=== PATIENT | male | born 1950 | race Caucasian/White ===

== ENCOUNTER → 2022-04-27 13:37 | Outpatient (CLI) | payer MEDICARE, OTHER, SELFPAY ==
[2022-04-27 14:24] LABS: Add Manual Diff / Slide Review NO; Basophils Absolute Auto 100 /uL (0-100); Basophils Percent Auto 0.6 % (0-2); Eosinophils Absolute Auto 500 /uL (0-450); Eosinophils Percent Auto 3.4 % (2-4); Hematocrit 42.9 % (41-53); Hemoglobin 14.2 g/dL (13.5-17.5); Lymphocytes Absolute Auto 3000 /uL (1100-4500); Lymphocytes Percent Auto 21.2 % (25-40); Mean Corpuscular HGB Conc 33.2 % (30-36); Mean Corpuscular Hemoglobin 30.8 PG (26-34); Mean Corpuscular Volume 92.7 fL (80-100); Monocytes Absolute Auto 1300 /uL (0-900); Monocytes Percent Auto 8.8 % (3-14); Neutrophils Absolute Auto 9400 /uL (1500-7000); Platelet Count 308 X10^3/uL (150-400); Red Blood Cell Count 4.63 X10^6/uL (4.5-5.9); White Blood Cell Count 14.2 X10^3/uL (4.5-11.0)
[2022-04-27 14:46] LABS: Blood Urea Nitrogen 20 mg/dL (9-20); Calcium 9.2 mg/dL (8.4-10.2); Carbon Dioxide 23 mmol/L (22-32); Chloride 103 mmol/L (98-107); Estimated Glomerular Filt Rate > 60 mL/min (>60); Glucose 93 mg/dL (80-110); HEMOLYSIS < 15 (0-50); Sodium 139 mmol/L (137-145)
== END ==
PROVIDERS: Referring Provider Orthopaedic Surgery; Visit Provider Orthopaedic Surgery
DX: Z01.818 Encounter for other preprocedural examination (principal); Z01.812 Encounter for preprocedural laboratory examination
CPT/HCPCS: 36415; 80048; 85025; 93005

== ENCOUNTER 2022-06-09 11:32 | Inpatient (IN) | payer MEDICARE, OTHER, SELFPAY ==
[2022-05-31 09:44] VITALS: BMI 35.8
[2022-06-09] VITALS (9 sets, daily range): BP systolic 109–155; BP diastolic 56–85; PULSE 76–97; RESP 11–27; TEMP 36.3–36.4; O2SAT 92–96; BMI 35.8
--- NOTE | 2022-06-09 06:00 | DI.RAD.S_ITS ---
PROCEDURE: XR SHOULDER RT 1V INDICATIONS: reverse total shoulder right shoulder TECHNIQUE: 1 view of the shoulder were acquired. COMPARISON: None. FINDINGS: Bones: Patient is status post reverse right shoulder arthroplasty. Right shoulder alignment is anatomic. No fractures or dislocations. No suspicious bony lesions. Visualized ribs appear intact. Soft tissues: Expected postsurgical changes are noted in superior and lateral right shoulder soft tissue. IMPRESSION: Postop changes from reverse right shoulder arthroplasty with anatomic right shoulder alignment. Dictated by: Sher Romero M.D. on 06/10/2022 at 11:28 Approved by: Sher Romero M.D. on 06/10/2022 at 11:29
[2022-06-09] MEDS: LACTATED RINGERS 1,000 ML 42 ML IV (12:36)
[2022-06-09] MEDS: ACETAMINOPHEN 325 MG TABLET 975 MG PO (12:52)
[2022-06-09 13:06] LABS: COVID19 -Nasal RAPID Negative (Negative)
--- NOTE | 2022-06-09 13:31 | PM.PREOP ---
Pre-operative Note Interval Note History & Physical reviewed/Exam performed by Physician: Yes Changes to H&P: No
--- NOTE | 2022-06-09 13:35 | PM.HP.1 ---
History of Present Illness History of Present Illness Date Patient Seen: 06/09/22 Time Patient Seen: 13:35 Chief complaint: Right TSA reverse w/biceps tenodesis Narrative: Edward is a pleasant 71-year-old male here today for his right total shoulder reverse arthroplasty, he is not had any changes in his symptoms and in fact he states that his pain is as bad as it has ever been. Having difficulty obtaining things out of cupboards and getting his hand behind his head. He denies any recent nausea, vomiting, diarrhea, fevers, chills or any other constitutional symptoms. He has no other complaints at this time. 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) Hx of arthroscopy of left knee Hx of cholecystectomy Social History household members: family Smoking Status: Former smoker alcohol intake: current Meds Home Medications and Allergies Home Medications Medication Instructions Recorded Confirmed Type allopurinol 300 mg tablet 300 mg PO DAILY 05/31/22 06/09/22 History furosemide 40 mg tablet 40 mg PO DAILY 05/31/22 06/09/22 History ibuprofen 800 mg tablet 800 mg PO DAILY PRN Pain 05/31/22 06/09/22 History lisinopril 10 mg tablet 10 mg PO DAILY 05/31/22 06/09/22 History Allergies Allergy/AdvReac Type Severity Reaction Status Date / Time No Known Drug Allergies Allergy Verified 06/09/22 12:19 Review of Systems Review of Systems ROS: Yes All systems reviewed with the patient and are negative except as otherwise documented Exam Vital Signs (past 8 hours): - 06/09/22 12:28 Temperature 97.4 F L Pulse Rate 96 H Respiratory Rate 22 Blood Pressure 155/85 H Pulse Oximetry 96 Oxygen Delivery Method Room Air Oxygen Delivery Method Room Air Narrative Exam Narrative: HEENT: Head atraumatic eyes anicteric moist mucous membranes Cardiovascular: Palpable peripheral pulses extremities are warm and well perfused Respiratory: Breathing comfortably on room air Psychiatric: Appropriate mood and affect Neuro: No acute deficits Musculoskeletal: Exam of right upper extremity demonstrates no lesions to the skin or rashes. Again, he has very limited range of motion as well as some weakness. 2+ radial pulse with brisk capillary refill less than 2 seconds. Sensation intact to light touch in median, radial, ulnar nerve distributions. Objective Labs Labs: Laboratory Results - last 24 hr 06/09/22 12:34 SARS-CoV-2 (PCR) Negative Assessment & Plan Assessment & Plan narrative: Assessment: 71-year-old male with right shoulder glenohumeral arthritis Plan: We previously discussed the operative and nonoperative options for shoulder arthritis. He is now completed years of conservative management is now indicated for a shoulder arthroplasty. Today and previously in the office we went over the risks and benefits of surgery including but not limited to the risk of infection, damage to internal structures, need for reoperation, shoulder instability. Patient expressed understanding with these risks and wished to go forward with surgery. His right upper extremity was marked with my initials.
--- NOTE | 2022-06-09 13:56 | SUR.PREOP ---
Went in to check on patient and noticed that his left upper arm where his IV site is placed has infiltrated. Discontinued IV and pressure dressing and warm compress applied. Patient denies pain. New IV site to left hand, 20 gauge, initiated x 1 attempt. Tolerated well. No infiltration noted. Patent.
--- NOTE | 2022-06-09 14:16 | SUR.PREOP ---
Time out done for nerve block placement by Dr Familia Comer. Block start time [1417] . Monitoring initiated and maintained throughout procedure. Oxygen and medications given per anesthesiologist instructions. Patient remained stable throughout procedure, no adverse reactions noted. Block end time 1440].
[2022-06-09] MEDS: CEFAZOLIN 2 GM/100 ML PREMIX 100 ML IV (15:05)
--- NOTE | 2022-06-09 15:29 | SUR.OPER ---
Beach chair on padded OR bed. Head on gel donut secured with tape over gauze. Non-operative arm secured <90 degrees abduction on padded arm with pillow amd gel, secured with tape. Pillow under knees. Safety belt at thigh. Cloth tape over blanket over lower legs.
[2022-06-09] MEDS: TRANEXAMIC ACID 1,000 MG VIAL 1000 MG INJ ×2 (15:36→16:29)
--- NOTE | 2022-06-09 16:55 | P.OP_ITS ---
Operative Date/Time/Diagnoses Date of procedure: 06/09/22 Time of procedure: 16:55 Pre-op diagnosis: Right glenohumeral arthritis with cuff tear arthropathy Post-op diagnosis: same Procedure & Clinicians Procedure: Right reverse total shoulder arthroplasty Same procedure as scheduled: Yes Indications: Indications: This is a 71-year-old male who has right shoulder glenohumeral arthritis with pain and weakness. Symptoms have been present for years, insidious onset. Patient has failed conservative therapy including injections, physical therapy, anti-inflammatories and activity modification. After extensive discussion in clinic, they wished to go forward with surgery. Risks and benefits were described including the risk of infection, bleeding, damage to internal structures including nerves. We also discussed the risk of failure of surgery and the need for revision surgery as well as the risk of anesthesia. The patient expressed understanding with these risks and wished to go forward with surgery. Surgeon: Gerard Strong Eligibility Examiner: Cherry Infante Anesthesia Type: General Operative Notes Findings: Findings: Osteoarthritis of the glenoid and humeral head as well as a deficient rotator cuff including subscap as noted under direct visualization. Glenoid retroversion of about 18? Closure Type: primary Specimen(s): none sent Prosthetic devices, grafts, tissues, transplants, or devices: Tornier implants Base plate: 29 mm full wedge Glenosphere: Standard 36 mm Stem: Perform 3 Poly: +0 concentric Estimated Blood Loss (mL): 50 Blood products transfused: none Procedure in detail: Patient was seen in the preoperative holding unit. The correct right shoulder was identified and marked with my initials. Again we discussed the risks and benefits of surgery and they wished to go forward with surgery. The patient was brought back to the operating room and placed supine on the operating table. Smooth endotracheal intubation was performed by anesthesia. All prominences we re padded and they were placed into the beach chair position. Intravenous antibiotics were given. The right shoulder was then prepped with the standard sterile preparation and draping. A time-out was then performed in my initials were again identified on the correct shoulder. 1 g of IV tranexamic acid was given. A standard deltopectoral incision was made. Skin flaps were made. The cephalic vein was identified and retracted laterally. This was protected throughout the remainder of the case. Sharp dissection was made along the deltoid, subacromial and subcoracoid space to release adhesions. The conjoined tendon was identified and the axillary nerve was palpated and continuous using the tug test. It was protected throughout the remainder of the case. A brown retractor was placed u nderneath the deltoid muscle and a darach retractor underneath the conjoint tendon. The anterior circumflex artery and associated veins on the lower border of the subscapularis were identified and tied off using 0-Vicryl. The biceps tendon was identified in the bicipital groove. This was released from its sheath, and taken from its origin on the glenoid and tied into the pectoralis tendon for a solid tenodesis. We then began a subscapularis peel. The subscapularis was tagged with an Ethibond suture. A 360 degree circumferential release of the subscapularis was performed with protection of the axillary nerve. The coracohumeral ligament was released at the base of the coracoid. The coracoacromial ligament was left intact. The shoulder was then dislocated. Osteophytes were removed using combination of rongeur and osteotome. The rotator cuff was noted to be insufficient, as well as a very thin and mostly attenuated subscapularis.. An intramedullary guide was used set at version of 30?. Using an oscillating saw a conservative humeral head cut was made. Impaction reamers were reamed up to a size 3 stem with a built-in angle 135?. A neck protector was placed. Attention was then turned to the glenoid. After retracting the humeral head posteriorly a circumferential release was performed of the capsule with protection of the axillary nerve. The labrum was then released starting at the biceps anchor and going around the rim a small amount of triceps was released from the inferior glenoid. A center guide pin was then placed using the guide, followed by Reamer. After adequate cartilage was removed the center drill hole was drilled and measured. The base plate was then implanted and screwed into place. The superior drill hole was drilled and filled in a nonlocking fashion, followed by the inferior and anterior holes in locking fashion, the posterior hole was also filled. A 36 standard glenosphere was then selected and screwed into place onto the base plate. Turning back to the humerus, the humeral head was delivered and trialed with a 0 concentric. The arm was taken through range of motion and this was felt to be stable. The trial was then removed and a dilute Betadine wash was then performed with 1 L of sterile saline. Before placing the final implant, drill holes were made in the bicipital groove for the subscapularis repair, and sutures were passed through the drill holes. The final stem was then impacted into the humerus. The shoulder was then reduced and again brought through range of motion and was felt to be stable. The interval was then closed using #2 Ethibond. The subscapularis was then repaired using a modified racking hitch with nice loupes. The deltopectoral interval was then closed with #2 Ethibond. The skin was closed with 2-0 PDS and concepcion followed by Aquacel dressing. Patient was awoken from anesthesia and brought back to the postoperative recovery unit without issue. They were placed into a sling. Assisting participation: This operation could not have been safely performed (without compromising the technical results or length of the procedure) without the assistance of a skilled surgical services director. The surgical services director was medically necessary for proper positioning, retraction and manipulation of instruments, proper exposure, graft prep, and manipulation of tissue. Complications: none Post-operative Condition: stable Disposition: PACU Plan for aftercare: Postoperative instructions: Sling to remain on for 6 weeks. No external rotation past neutral for 6 weeks. Okay for him to come off her shower. Okay to shower over the Aquacel dressing. If any water gets underneath the dressing, remove the dressing. First postoperative visit in 2 weeks.
== END 2022-06-09 18:12 | disposition home or self-care (01) | DRG 483 ==
PROVIDERS: Admitting Provider Orthopaedic Surgery; PCP Family Medicine; Referring Provider Orthopaedic Surgery; Visit Provider Orthopaedic Surgery
PROC: 0RRJ00Z Replacement of Right Shoulder Joint with Reverse Ball and Socket Synthetic Substitute, Open Approach (ICD-10-PCS; CPT 23472; principal; 2022-06-09 13:45)
DX: M19.011 Primary osteoarthritis, right shoulder (principal); M75.101 Unspecified rotator cuff tear or rupture of right shoulder, not specified as traumatic; Z87.891 Personal history of nicotine dependence; Z20.822 Contact with and (suspected) exposure to COVID-19
CPT/HCPCS: 64450; 73020; 87635; C1776; C9803; J0690; J1100; J2250; J2405; J2704; J3010

== ENCOUNTER 2023-10-16 06:06 | Inpatient (IN) | payer MEDICARE, OTHER, SELFPAY ==
[2023-10-12 09:46] VITALS: BMI 36.5
[2023-10-16] VITALS (20 sets, daily range): BP systolic 86–120; BP diastolic 49–69; PULSE 67–94; RESP 11–22; TEMP 36.1–36.9; O2SAT 92–98; BMI 37.1
--- NOTE | 2023-10-16 | DI.RAD.S_ITS ---
PROCEDURE: XR LUMBAR SPINE 2-3V INDICATIONS: TLIF L4-5, L5-S1 TECHNIQUE: Fluoroscopic guidance utilized for a surgical fusion of the lumbosacral spine. COMPARISON: None. FINDINGS: Fluoroscopic images submitted for a surgical fusion of the lumbosacral spine. Please see operative note for further discussion. IMPRESSION: Fluoroscopic guidance. Dictated by: Mendoza Hays M.D. on 10/16/2023 at 15:28 Approved by: Mendoza Hays M.D. on 10/16/2023 at 15:29
[2023-10-16] MEDS: LACTATED RINGERS 1,000 ML 42 ML IV ×2 (07:02→09:11)
[2023-10-16] MEDS: PREGABALIN 75 MG CAPSULE PO (07:39)
[2023-10-16] MEDS: FAMOTIDINE 20 MG/2 ML VIAL IV (07:39)
[2023-10-16] MEDS: ACETAMINOPHEN 325 MG TABLET 975 MG PO (07:39)
--- NOTE | 2023-10-16 07:43 | PM.PREOP ---
Pre-operative Note Interval Note History & Physical reviewed/Exam performed by Physician: Yes Changes to H&P: No
[2023-10-16] MEDS: CEFAZOLIN 2 GM/100 ML PREMIX 100 ML IV ×3 (08:00→23:41)
--- NOTE | 2023-10-16 08:13 | SUR.OPER ---
Prone on spine table, head in foam head support, padded chest and pelvic supports, gel pad at knees, lower legs supported by pillows; nipples, genitalia and toes free of pressure, arms secured on foam padded arm boards at <90 degrees abduction. Tape over blanket at thigh secured to table.
[2023-10-16] MEDS: BUPIVACAINE LIPOSOME 266 MG/20 ML VIAL INJ (08:36)
[2023-10-16] MEDS: BUPIVACAINE 0.25% (PF) 30 ML, EPINEPHrine 0.15 MG INJ (08:37)
--- NOTE | 2023-10-16 12:38 | P.OP_ITS ---
Operative Date/Time/Diagnoses Date of procedure: 10/16/23 Time of procedure: 07:40 Pre-op diagnosis: 1. L3-4, L4-5, L5-S1 spinal stenosis with neurogenic claudication 2. L4-5 anterolisthesis 3. L5-S1 foramen stenosis with radiculopathy Post-op diagnosis: same Procedure & Clinicians Procedure: 1. L4-5, L5-S1 Postero-lateral and posterior interbody fusion 2. L4-5, L5-S1 interbody cage placement. 3. L4-5, L5-S1 decompressive laminectomy with bilateral facetecomies 4. L4-5, L5-S1 Posterior segmental instrumentation 5. L3-4 laminectomies with partial facetecomies 6. [place] of bone marrow from iliac crest 7. Utilization of microsurgical technique and operating microscope 8. Utiliziation of robotic assisted navitation Same procedure as scheduled: Yes Indications: Patient has been having chronic back pain and worsening lumbar radiculopathy and symptoms of neurogenic claudication. Patient was found have significant spinal stenosis at L3-4 L4-5 L5-S1 level as well as L4-5 anterolisthesis correlating with patient's symptoms. Patient failed multiple conservative management with worsening pain weakness and numbness in his lower extremity. Patient has been having difficulty performing activity of daily living. After discussing risks benefits of treatment options, patient elected proceed with surgery. Surgeon: Magdalena Houston Photographic Equipment Assembler: Ashley Jade Click Yes if Unassisted: No Anesthesia Type: General Operative Notes Closure Type: primary Specimen(s): none sent Prosthetic devices, grafts, tissues, transplants, or devices: Globus CREO MIS screws, Rise cages Applied: catheter Estimated Blood Loss (mL): 200 Blood products transfused: none Procedure in detail: Patient was seen in the preoperative area. Risks and benefits of the surgery was discussed with the patient. Informed consent was obtained from the patient and placed in the chart. Surgical site was marked. Patient was taken to the operative room. General anesthesia was administered. Prophylactic antibiotic was given to the patient less than 30 min before the incision was made. Patient was placed into a prone position on the Zackary table. Patient's back was then prepped and draped in the sterile fashion. Time-out was performed at this time. After patient was prepped and draped, patient's PSIS was palpated and marked bilaterally. Small 1 cm incision was made over the PSIS for placement of the reference probes. Two trocar was placed into the PSIS 1 on each side. The reference probe was attached to the trocar of the reference apparatus. At this time the C-arm imaging was used to confirm AP and lateral of L4-L5, L5- S1 vertebrae and merged the C-arm imaging using the Survela navigation system with the CT of the lumbar spine. After successful merging was completed and confirmed, skin marker was used to nafisa out the skin incision using the [email or web address] robotic arm. Bilateral incision was made at this time. Pre templated trajectory was used and guided using the Survela navigation system for bilateral L4, L5, S1 pedicle screw placement. This was done by using the robotic arm to guide the high-speed bur to make a cortical entry point. Next a drill was placed also using the robotic arm and guided using the navigation system drilling partially through bilateral L4, L5 and S1 pedicles. Next L4, L5, S1 pedicle screws it was pre templated and measured was placed onto the power special needs bus driver and inserted into the pedicles bilaterally. After all 6 screws were placed C-arm imaging was taken of both AP and lateral to confirm the placement. Excellent placement of the screws were confirmed and a matched precisely with the pre planned screw placement using the navigation system. MARs retractor was inserted using GoLarkivation guidence. Globus MARS retractors was placed inside the incision and docked onto the L4 and L5 lamina. Using microsurgical technique and operating microscope, a L4, L5 laminectomy and L4-5, L5-S1 facetectomy was performed using a Kerrison rongeur. Patient was found have severe lateral recess and neural foramen stenosis which was fully decompressed after the laminectomy facetectomy. More than 75% of the facets were removed during the process of decompression rendering L4-5, L5-S1 level grossly unstable and required a fusion procedure at the same time. The laminectomy and facetectomy was performed in order to decompress patient's cauda equina as well as the nerve roots exiting at the L4-5 L5-S1 level. The disc space at L4-5, L5-S1 was identified, and a total diskectomy was performed at L4- 5, L5-S1 level. The endplates were decorticated using a rasp and shaver. The total diskectomy and decortication was performed at L4-5, L5-S1 level in order to to accomplish a L4-5, L5-S1 fusion. The local bone from the laminectomy and facetectomy was saved for local bone grafting. After the total diskectomy and decortication was completed, Viacel bone graft material was combined with local bone that was harvested earlier. At this time, a separate skin is incision was made over the iliac crest. A Jamshidi needle was inserted into the iliac crest through a separate skin incision on the right side. 5 cc of bone marrow aspiration was obtained through the separate skin incision using a Jamshidi needle from the iliac crest. The bone marrow aspiration was combined with local bone and the Viacel bone grafting material. The bone grafting material was placed into the L4-5, L5-S1 interbody space along with a expandable cage. The cage was expanded to its maximum height using the torque limiting screwdriver. The disc preparation as well as the cage insertion were also performed under navigation guidance. After the cage was placed, AP and lateral C-arm imaging was taken to confirm placement of the cage and excellent position was confirmed. The MARS retractor was heard redirected over the L3-4 interval. Using microsurgical technique and operating microscope a right-sided hemilaminectomy was performed using Kerrison rongeur and undercutting the L3-4 facet to further decompress the lateral recess. Globus MARS retractor was inserted and docked onto the L4-5, L5-S1 posterolateral gutter on the right side. Using the power drill, posterior-lat eral decortication was performed at L4-5, L5-S1 level until bleeding cortical bone was identified. The remaining bone grafting material was placed into the L4-5, L5-S1 posterior lateral gutter he order to accomplish posterolateral fusion at the L4-5, L5-S1 level. At this time the tulips were attached to the L4, L5, S1 pedicle screw shanks. After measuring the length of the rods, they were inserted into the tulips of the pedicle screws and locked in place using locking caps and torque limiting screwdriver bilaterally. Total 6 caps and 2 titanium rods was used in order to complete the posterior instrumentation construct. After all the hardware was placed, and confirmed with AP and lateral C-arm imaging, the wound was then irrigated with sterile normal saline and packed with Ray-Jennifer gauze for 3 min to accomplish hemostasis. After the gauze was removed the deep fascia was closed with #1 Vicryl suture. The subcutaneous layer was closed with 2-0 Vicryl. The skin was closed with skin concepcion. Patient tolerated the procedure well. There were no complications. Neuro monitoring system was used to monitor patient's neurologic status throughout entire procedure. There was no disturbance of the neural monitoring signals throughout the case. Complications: none Post-operative Condition: stable Disposition: PACU Plan for aftercare: Admit to inpatient hospital
--- NOTE | 2023-10-16 15:03 | SUR.PHASEI ---
Report called to [facility]. Verified with BERTHA Robles, that the patient has a history of intermittent A-fib. Patient denied pain.
[2023-10-16] MEDS: LACTATED RINGERS 1,000 ML 125 ML IV ×2 (15:27→23:42)
[2023-10-16] MEDS: polyethylene glycoL 3350 17 GM POWD.PACK PO (17:09)
[2023-10-16] MEDS: OXYCODONE IR 10 MG TABLET PO ×2 (18:32→21:33)
[2023-10-17 02:13] VITALS: BP 104/50; PULSE 79; RESP 18; TEMP 36.7; O2SAT 97
[2023-10-17 06:12] LABS: Hematocrit 36.8 % (41-53); Hemoglobin 12.4 g/dL (13.5-17.5)
--- NOTE | 2023-10-17 07:26 | PM.PNPO.1 ---
Subjective Subjective Date Patient Seen: 10/17/23 Time Patient Seen: 07:27 Interval history: Patient reports mild back pain. No fever or chills. Has not yet been out bed. Patient's grandson will be home to assist him. Exam Vital Signs (past 8 hours): - 10/17/23 02:13 Temperature 98.0 F Pulse Rate 79 Respiratory Rate 18 Blood Pressure 104/50 L Pulse Oximetry 97 Oxygen Flow Rate 0 Oxygen Delivery Method Room Air Oxygen Flow Rate 0 Narrative Exam Narrative: 73-year-old male resting comfortably in bed in no apparent distress. Motor functions intact bilateral lower extremities. 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) Hx of cholecystectomy Hx of arthroscopy of left knee Social History household members: family Smoking Status: Former smoker alcohol intake: current Assessment & Plan Post-op Postoperative Procedures: Procedures Operation Date: 10/16/23 07:45 Actual Procedure Side Surgeon p L4-5, L5-S1 TLIF with posterior instrumentation Not Applicable Magdalena Houston MD s L3-4 Laminectomy Magdalena Houston MD Postoperative day: 1 Postoperative status: doing well Postoperative plan: routine post-op care Postoperative plan narrative: Mobilize with physical therapy, limit bending, twisting, lifting Discontinue Arnett catheter Multimodal pain management Disposition, likely home today or tomorrow
[2023-10-17 08:00] VITALS: BP 109/75; PULSE 78; RESP 18; TEMP 36.4; O2SAT 96
[2023-10-17] MEDS: DOCUSATE 100 MG CAPSULE PO ×2 (09:01→20:47)
[2023-10-17] MEDS: FUROSEMIDE 40 MG TABLET 80 MG PO (09:01)
[2023-10-17] MEDS: OXYCODONE IR 10 MG TABLET PO ×3 (09:01→20:48)
--- NOTE | 2023-10-17 09:47 | OT.IP.EVAL ---
Current Diagnoses Spondylolisthesis, lumbar region (10/16/23) Spinal stenosis, lumbar region with neurogenic claudication (10/16/23) Surgery Performed Operation Date: 10/16/23 07:45 Actual Procedures p L4-5, L5-S1 TLIF with posterior instrumentation(Not Applicable) - Magdalena Houston MD s L3-4 Laminectomy - Magdalena Houston MD Past Medical History (Last Reviewed 10/17/23 @ 07:28 by Maycol Noel PA-C) Amputation of toe Anesthesia (~2022) Arthritis Gout HTN (hypertension) Neuropathy Numbness Osteoarthritis Surgical History (Last Reviewed 10/17/23 @ 07:28 by Maycol Noel PA-C) History of carpal tunnel surgery of left wrist History of carpal tunnel surgery of right wrist History of shoulder replacement (~2022) 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 Activities of Daily Living and IADL's Pt needing use of LB dressing equipment for dressing needs and assist for IADL needs. Social History Household Members family Living Arrangements House Number of Stairs To Enter/Railing? 1 step and threshold to get into the house. Home Environment Standard Height Toilet,Walk in Shower,Tub/Shower Home Equipment Front Wheel Walker,Four Wheel Walker,Straight Cane,Raised Toilet Seat Without Armrests, Shower Seat without Backrest, Hand Held Shower,Long Handled Sponge,Long Handled Shoe Horn, Sock Aid Additional Social History Comment Pt has an adjustable bed and toilet paper aid. Pt states his FWW is probably in storage that he will ask his grandson to pull it out. M2 OT-IP Current Condition Start: 10/17/23 09:51 Freq: Status: Active Protocol: Document 10/17/23 09:51 [facility] (Rec: 10/17/23 10:09 [facility] [id number]) Occupational Therapy Current Condition Current Condition Evaluation Date 10/17/23 Treatment Diagnosis S/P L4-5, L5-S1 TLIF post instr. L3-4 Laminectomy Diagnosis Onset Date 10/16/23 Post Operative Precautions Lumbar Precautions Log Roll,No Twisting,Limit Bending,Lifting Restriction of 10 lbs,Gait Belt above Incisional Area M3 OT- IP Subjective and Pain Start: 10/17/23 09:51 Freq: Status: Active Protocol: Document 10/17/23 09:51 [facility] (Rec: 10/17/23 10:09 [facility] [id number]) OT- Subjective Occupational Therapy Visit Type Type Initial Evaluation Visit Start Time 09:00 Visit Stop Time 09:47 Occupational Therapy Visit Comments Patient Comments Pt agreed to get up for OT eval. Patient/Caregiver Goals TO go home. OT Pain Assessment Pain When Pain Assessed At Rest Pain Present Pain Present Pain Reported Location Bilateral Back Intensity 3 Scale Used Numeric (0 - 10) M4 OT- IP ADL's Start: 10/17/23 09:51 Freq: Status: Active Protocol: Document 10/17/23 09:51 [facility] (Rec: 10/17/23 10:09 [facility] [id number]) OT SMF-Dion-Zxbvlzq General Evaluation Self-Feeding Ability Independent OT ADL-Grooming General Evaluation Grooming Ability Standby Assistance Areas Needing Assistance Retrieving/Set-up of Grooming Items Comments OT Grooming Comments Set-up while seated. OT ADL-Oral Care General Eval Oral Care Ability Independent OT ADL-Dressing General Eval Lower Body Dressing Ability Maximum Assistance Comments OT Dressing Comments Pt states has all LB dressing equipment besides the waistline joiner overlock and plans on getting one. OT ADL-Toileting General Evaluation Toileting Ability Total Assistance Areas Needing Assistance Empty Catheter or Colostomy Comments OT Toileting Comments Martin in place. OT ADL-Bathing Comments OT Bathing Comments Pt thinking about just sponging off initially. Otherwise just suggested for pt to borrow his 's shower stool and HHSP for his WIS. Educated to cover the dressing from getting it wet. M5 OT- IP IADL's Start: 10/17/23 09:51 Freq: Status: Active Protocol: Document 10/17/23 09:51 [facility] (Rec: 10/17/23 10:09 [facility] [id number]) OT-Instrumental Activities of Daily Living Deficits IADL Deficits Identified Deficits Home Safety Awareness Awareness of Need for Assistance at Home Good Awareness Ability to Problem Solve Emergency Able to Problem Solve Situations Home Safety Comments Pt states his is able to assist him but not lift him. His grandson works night and to be home to assist. Meal Preparation Meal Preparation Caregiver Provides Assist Rod Machine Operator Rod Machine Operator Caregiver Provides Assist M6 OT- IP Functional Cognition Start: 10/17/23 09:51 Freq: Status: Active Protocol: Document 10/17/23 09:51 [facility] (Rec: 10/17/23 10:09 [facility] [id number]) Cognitive Factors Limiting Selfcare Function Cognitive Ability Level of Alertness Alert Patient Orientation Name,Age,Birthday,Month,Date, Year,Day of Week,Place, Situation Ability to Follow Commands Able to Follow One Step Commands Cognitive Comments Cognitive Assessment Comments Pt able to follow his back precautions after initial education. Pt needing initial encouragement as pt was a little apprehensive of how to move initially for bed mobility needs. OT- Vision and Hearing OT- Hearing Assessment OT- Hearing Assessment WFL OT- Vision Assessment Visual Acuity WFL Visual Attentiveness WFL Occular Pursuits WFL M7 OT- IP Mobility and Balance Start: 10/17/23 09:51 Freq: Status: Active Protocol: Document 10/17/23 09:51 [facility] (Rec: 10/17/23 10:09 [facility] [id number]) OT- Bed Mobility Assessment Rolling Type of Rolling Roll to Left Level of Assistance Contact Guard Assistance Supine to Sit Supine to Sit Assist Minimal Assistance Scooting Scooting to Edge of Bed Standby Assistance OT-Transfer Assessment Sit to and From Stand Sit to and from Stand Minimal Assistance Transfers Transfer Ability Minimal Assistance Technique Transfer Destination Bed,Chair Transfer Technique Stand Step Pivot Devices Transfer Assistive Devices Gait Belt,Front Wheeled Walker Comments Mobility Comments Pt usually gets out from the right of the bed but wanting to get out on the left side. CARLEE to assist his trunk upright. Heavy use of his hands on the FWW for the transfer and needing CARLEE for balance and words for reassurance. Pt states to use his rolling office chair to sit in, discourage the idea as a fall risk. If having to use the office chair emphasized to have it backed to a wall and have his grandson assist. OT- Balance Assessment Sitting Balance and Reactions Static Sitting Balance Ability Good Dynamic Sitting Balance Ability Good Standing Balance and Reactions Static Standing Balance Ability Fair Dynamic Standing Balance Ability Poor M8 OT- IP Objective Assessments Start: 10/17/23 09:51 Freq: Status: Active Protocol: Document 10/17/23 09:51 [facility] (Rec: 10/17/23 10:09 [facility] [id number]) OT Gross Range of Motion Upper Extremity Range of Motion Assessment Left Impaired ROM Impairments LUE grossly WFL OT Strength Comments Strength Comments NT due to back sx. M9 OT- IP Assessment and Plan Start: 10/17/23 09:51 Freq: Status: Active Protocol: Document 10/17/23 09:51 [facility] (Rec: 10/17/23 10:09 [facility] [id number]) OT Summary Assessment and Plan Potential Rehabilitation Potential Good Analytic Complexity at Evaluation Low Summary OT Impairments Pain,Strength,Balance, Functional Mobility,Dressing, Toileting,Bathing,Toilet Transfers,Shower Transfers, Activity Tolerance Progress Towards Goals Progressing Toward Goals Assessment Summary Pt LOW complexity and main barriers are pain, steps, and will need assist with transitions especially for lower surfaces. Goals Grooming Goal Independent Dressing Goal Independent,Long Handled Shoe Horn,Woodworker,Sock Aid Toileting Goal Independent,Toilet Paper Aid Bathing Goal Minimal Assistance Toilet Transfer Goal Independent Shower Transfer Goal Standby Assistance Days to Meet Goals 5 Frequency of Treatment Frequency Of Treatment Once a Day Other frequency 5x/weel Treatment Plan OT Treatment Plan ADL Training,Functional Mobility,Patient/Family Education,Discharge Planning Other Treatment Recommendations and Next Standing ADL needs Treatment Focus Discharge Recommendations OT Discharge Recommendations Home with Assistance Transportation Needs at Discharge Private Vehicle
--- NOTE | 2023-10-17 10:45 | PT.IIE ---
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) Hx of arthroscopy of left knee Hx of cholecystectomy Medical History (Last Reviewed 10/17/23 @ 07:28 by Maycol Noel PA-C) Amputation of toe Anesthesia (~2022) Arthritis Gout HTN (hypertension) Neuropathy Numbness Osteoarthritis Physical Therapy Inpatient Evaluation/Re-Eval M1 PT/OT-IP Prior Functional Status Start: 10/17/23 12:35 Freq: NEEDED Status: Active Protocol: Document 10/17/23 10:45 [facility] (Rec: 10/17/23 12:54 AB [id number]) Medical Review Prior Functional Status Medical History Reviewed Yes Communication able to make needs known Mobility and Gait pt stated that he was modified independent with all mobilities and ambulation without AD indoors; uses a 4WW to get his mail; uses a SPC to get into his car Activities of Daily Living and IADL's per OT note: Pt needign use of LB dressing equipment for dressing needs and assist for IADL needs. Social History Household Members family Living Arrangements House Number of Floors (Floors) One Floor Number of Stairs To Enter/Railing? 2 steps to enter without rails Home Environment Standard Height Toilet,Walk in Shower,Tub/Shower,Tub/Shower Doors Home Equipment Front Wheel Walker,Four Wheel Walker,Quad Cane,Raised Toilet Seat Without Armrests,Shower Seat without Backrest Additional Social History Comment pt lives with spouse and grandson; spouse will not be able to assist pt; grandson will be able to assist but works at night pt stated that his sister will be picking him up on d/c M2 PT-IP Current Condition Start: 10/17/23 12:35 Freq: NEEDED Status: Active Protocol: Document 10/17/23 10:45 [facility] (Rec: 10/17/23 12:55 AB [id number]) Physical Therapy Current Condition Current Condition Evaluation Date 10/17/23 Treatment Diagnosis s/p L4-5, L5S1 TLIF; difficulty in walking Onset Date 10/16/23 M3 PT-IP Subjective Start: 10/17/23 12:35 Freq: NEEDED Status: Active Protocol: Document 10/17/23 10:45 [facility] (Rec: 10/17/23 12:54 AB [id number]) Subjective Physical Therapy Visit Type Type Initial Evaluation Visit Start Time 10:45 Visit Stop Time 11:25 Number of REGISTERED NURSING PROFESSOR Visits 0 Physical Therapy Visit Comments Patient Comments pt is agreeable to do PT Therapy Pain Assessment Pain When Pain Assessed At Rest Pain Present Pain Present Pain Reported Location Bilateral Back Intensity 3 Scale Used increases with mobility Pain Management Techniques Distraction,Modification of Treatment,Re-positioning, Timing of Activity with Medications M4 PT-IP Mobility and Gait Start: 10/17/23 12:35 Freq: NEEDED Status: Active Protocol: Document 10/17/23 10:45 [facility] (Rec: 10/17/23 12:54 AB [id number]) PT-Bed Mobility Assessment Rolling Type of Rolling Log Rolling Level of Assist Standby Assistance Supine to Sit Supine to Sit Standby Assistance Sit to Supine Sit to Supine Standby Assistance,Minimal Assistance PT-Transfer Assessment Sit to and From Stand Sit to and from Stand Minimal Assistance,Moderate Assistance,Maximum Assistance, 1 Person Assistance,Use of Upper Extremities Equipment Transfer Assistive Device Gait Belt,Front Wheeled Walker Orthotic/Prosthetic Devices or Brace: No Transfers Transfer Destination Bed,Chair Transfer Technique ambulated Transfer Ability Level of Assist Contact Guard Assistance, Minimal Assistance,1 Person Assistance,Use of Upper Extremities Comments Mobility Comments pt sitting on the chair and agreeable to do PT. obtained PLOF and home set up from pt. reviewed back precautions and log roll bed mobility. pt completed sit to stand from the chair max A and max cues. pt ambulated from chair to EOB using FWW CGA to min A and cues for steadiness. pt sat on EOB. completed sit to supine min A with LE elevation to bed and cues to completed; supine to sit SBA and max cues. pt repeated bed mobility sit<> supine again SBA without cues needed. pt completed sit to stand from EOB min A and cues and ambulated ~ 20 ft using FWW CGA to min A to platform step. completed up/down platform step max A using quad cane + INSURANCE CLAIM AUDITOR and max cues. pt with LOB requiring max A for steadiness. pt ambulated to the chair using FWW ~ 35 ft min A and cues. c/o increase back and LE. pt sat on the chair. positioned pt on the chair. call light and table placed within reach. informed pt regarding current level of assistance and caregiver training. pt hesitant about caregiver training. pt educated on safety importance. pt will decide later. will f/u Gait Assessment Gait Gait Assistance Required: Contact Guard Assist,Minimum Assistance Distance (Feet) 35 Able to Maintain Weight Bearing Status Yes During Gait Assistive Devices Assistive Device Gait Belt,Front Wheeled Walker Orthotic/Prosthetic Devices or Brace: No Gait Deviations General Gait Pattern Antalgic,Ataxic,Decreased Stride Length,Decreased Feet Clearance,Step-to Gait Factors Limiting Gait Function Factors Limiting Gait Function Decreased Activity Tolerance, Decreased Sensation,Decreased Strength,Difficulty Following Directions,Limited Range of Motion,Pain,Poor Balance, Respiratory Distress Stair Climbing Assessment Evaluation Level of Assist On Stairs Maximal Assistance,1 Person Assistance Devices Stair Climbing Assistive Devices Small Base Quad Cane Technique/Endurance Stair Climbing Direction Ascend and Descend Stair Climbing Technique Step to Step Number of Steps Climbed 1 Query Text: Stair Climbing Set # Repetitions (reps) 1 PT-Balance Assessment Sitting Balance and Reactions Static Sitting Balance Ability Good Dynamic Sitting Balance Ability Fair Standing Balance and Reactions Static Standing Balance Ability Fair Dynamic Standing Balance Ability Poor Device Used FWW M5 PT-IP Objective Assessments Start: 10/17/23 12:35 Freq: NEEDED Status: Active Protocol: Document 10/17/23 10:45 [facility] (Rec: 10/17/23 12:54 [facility] [id number]) Orientation Orientation/Cognition Level of Alertness Alert Orientation Name,Place,Situation Language Function Ability Hard of Hearing Safety Awareness Decreased Safety Awareness Memory Description Short Term Impaired Gross Range of Motion Lower Extremity ROM Assessment Within Functional Limits Strength Lower Extremity Strength Assessment Right Impaired Hip 3+/5 Knee 3+/5 Coordination Assessment Gross Coordination Gross Coordination WNL Sensation Assessment Sensation Gross Sensation WNL Muscle Tone Muscle Tone WNL Yes M6 PT-IP Treatment Start: 10/17/23 12:35 Freq: NEEDED Status: Active Protocol: Document 10/17/23 10:45 [facility] (Rec: 10/17/23 12:54 AB [id number]) Physical Therapy Treatment Education Education Provided Precautions,Weight Bearing Status,Safety M7 PT-IP Assessment and Plan Start: 10/17/23 12:35 Freq: NEEDED Status: Active Protocol: Document 10/17/23 10:45 [facility] (Rec: 10/17/23 12:54 AB [id number]) PT Summary Assessment and Plan Potential Rehabilitation Potential Fair Status of Condition at Evaluation Evolving Summary Impairments Pain,ROM,Strength,Balance, Coordination,Sensation,Tone, Cognition,Bed Mobility, Transfers,Gait,Activity Tolerance Assessment Summary pt is a 73 y/o M s/p L4-5, L5S1 TLIF POD 1. pt with back precautions. pt requiring SBA to min A for bed mobility, min to max A for sit to stand depending on surface and height and CGA to min A with ambulation using FWW. pt needing max A for stair climbing. pt will need assistance at this time. offered caregiver training but pt refusing. will continue to assess pt's progress. Goals Bed Mobility Goal Independent Transfer Goal Independent,Front Wheeled Walker Gait Goal Independent,Front Wheel Walker Gait Distance 150 Other Goals up/down 2 steps using quad cane + INSURANCE CLAIM AUDITOR CGA Days to Meet Goals 5 Frequency of Treatment Frequency Of Treatment Twice a Day Treatment Plan Physical Therapy Treatment Plan Bed Mobility Training,Transfer Training,Gait Training, Therapeutic Exercise,Balance Retraining,Post Op Education, Discharge Planning,Hot or Cold Pack,Neuromuscular Re-ed, Coordination Retraining,Manual Therapy Precautions Lumbar Precautions Log Roll,No Twisting,Limit Bending,Lifting Restriction of 10 lbs,Gait Belt above Incisional Area Recommendations To Nursing Amount of Assist Needed 1 Person Assist Discharge Recommendations PT Discharge Recommendations Home with 29/08 Assist Available,Home Health Transportation Needs at Discharge Private Vehicle,Wheelchair/ Cabulance
--- NOTE | 2023-10-17 14:00 | PT.IPTN ---
Current Diagnoses Spondylolisthesis, lumbar region (10/16/23) Spinal stenosis, lumbar region with neurogenic claudication (10/16/23) Surgery Performed Operation Date: 10/16/23 07:45 Actual Procedures p L4-5, L5-S1 TLIF with posterior instrumentation(Not Applicable) - Magdalena Houston MD s L3-4 Laminectomy - Magdalena Houston MD Physical Therapy Treatment Note M2 PT-IP Current Condition Start: 10/17/23 12:35 Freq: NEEDED Status: Active Protocol: Document 10/17/23 10:45 [facility] (Rec: 10/17/23 12:55 AB [id number]) Physical Therapy Current Condition Current Condition Evaluation Date 10/17/23 Treatment Diagnosis s/p L4-5, L5S1 TLIF; difficulty in walking Onset Date 10/16/23 M3 PT-IP Subjective Start: 10/17/23 12:35 Freq: NEEDED Status: Active Protocol: Document 10/17/23 14:00 AB (Rec: 10/17/23 16:46 AB [id number]) Subjective Physical Therapy Visit Type Type Treatment Note Visit Start Time 14:00 Visit Stop Time 14:50 Number of SUPERINTENDENT PRODUCTION Visits 0 Physical Therapy Visit Comments Patient Comments agreeable to do PT; c/o increase pain Therapy Pain Assessment Pain When Pain Assessed At Rest Pain Present Pain Present Pain Reported Location Bilateral Back Intensity 8 Scale Used Numeric (0 - 10) Pain Management Techniques Distraction,Modification of Treatment,Re-positioning, Timing of Activity with Medications M4 PT-IP Mobility and Gait Start: 10/17/23 12:35 Freq: NEEDED Status: Active Protocol: Document 10/17/23 14:00 AB (Rec: 10/17/23 16:46 AB [id number]) PT-Bed Mobility Assessment Rolling Type of Rolling Log Rolling Level of Assist Standby Assistance Supine to Sit Supine to Sit Standby Assistance Sit to Supine Sit to Supine Standby Assistance PT-Transfer Assessment Sit to and From Stand Sit to and from Stand Minimal Assistance Equipment Transfer Assistive Device Gait Belt,Front Wheeled Walker Orthotic/Prosthetic Devices or Brace: No Transfers Transfer Destination Bed Transfer Technique ambulated Transfer Ability Level of Assist Contact Guard Assistance, Minimal Assistance,1 Person Assistance,Use of Upper Extremities Comments Mobility Comments pt sitting on the chair and agreeable to do PT. stated that he talked to his son and is a snow technician and stated that they can ask the fire department to assist him to get into the house. reviewed back precautions and pt recalled 2/3 pt completed sit to stand from the chair min A and max cues. ambulated to the bed using FWW CGA. sat on EOB and completed log roll bed mobility SBA. pt completed sit to stand from the EOB CGA to min A and ambulated towards the platform step. c/o increase LBP this afternoon and stated that he does not think he can to stairs. pt ambulated back to his room and requested to go back to bed. completed sit to supine SBA. positioned pt in bed. call light and table placed within reach. informed pt regarding caregiver training. pt gave his sister's phone # for PT to set up caregiver training for tomorrow. pt requested 1030 am training. called pt's sister and agreed to do caregiver training tomorrow at 1030am. Gait Assessment Gait Gait Assistance Required: Contact Guard Assist,Minimum Assistance Distance (Feet) 30 Able to Maintain Weight Bearing Status Yes During Gait Assistive Devices Assistive Device Gait Belt,Front Wheeled Walker Orthotic/Prosthetic Devices or Brace: No Gait Deviations General Gait Pattern Ataxic,Decreased Stride Length ,Decreased Feet Clearance Factors Limiting Gait Function Factors Limiting Gait Function Decreased Activity Tolerance, Limited Range of Motion,Pain, Poor Balance,Poor Safety Awareness M5 PT-IP Objective Assessments Start: 10/17/23 12:35 Freq: NEEDED Status: Active Protocol: Document 10/17/23 10:45 AB (Rec: 10/17/23 12:54 AB [id number]) Orientation Orientation/Cognition Level of Alertness Alert Orientation Name,Place,Situation Language Function Ability Hard of Hearing Safety Awareness Decreased Safety Awareness Memory Description Short Term Impaired Gross Range of Motion Lower Extremity ROM Assessment Within Functional Limits Strength Lower Extremity Strength Assessment Right Impaired Hip 3+/5 Knee 3+/5 Coordination Assessment Gross Coordination Gross Coordination WNL Sensation Assessment Sensation Gross Sensation WNL Muscle Tone Muscle Tone WNL Yes M6 PT-IP Treatment Start: 10/17/23 12:35 Freq: NEEDED Status: Active Protocol: Document 10/17/23 14:00 AB (Rec: 10/17/23 16:46 AB [id number]) Physical Therapy Treatment Education Education Provided Precautions,Safety M7 PT-IP Assessment and Plan Start: 10/17/23 12:35 Freq: NEEDED Status: Active Protocol: Document 10/17/23 14:00 AB (Rec: 10/17/23 16:46 AB [id number]) PT Summary Assessment and Plan Potential Rehabilitation Potential Good Summary Impairments Pain,ROM,Strength,Balance, Coordination,Sensation,Tone, Cognition,Bed Mobility, Transfers,Gait,Activity Tolerance Progress Towards Goals Slow Progress due to Pain Assessment Summary pt requiring CGA to min A with mobility using FWW but unable to do stair climbing this afternoon due to c/o increase back pain. caregiver training set up for tomorrow at 1030 am . will continue to assess progress. Goals Bed Mobility Goal Independent Transfer Goal Independent,Front Wheeled Walker Gait Goal Independent,Front Wheel Walker Gait Distance 150 Other Goals up/down 2 steps using quad cane + SENIOR PROGRAM PLANNER CGA Days to Meet Goals 5 Frequency of Treatment Frequency Of Treatment Twice a Day Treatment Plan Physical Therapy Treatment Plan Bed Mobility Training,Transfer Training,Gait Training, Therapeutic Exercise,Balance Retraining,Post Op Education, Discharge Planning,Hot or Cold Pack,Neuromuscular Re-ed, Coordination Retraining,Manual Therapy Precautions Lumbar Precautions Log Roll,No Twisting,Limit Bending,Lifting Restriction of 10 lbs,Gait Belt above Incisional Area Recommendations To Nursing Amount of Assist Needed 1 Person Assist Discharge Recommendations PT Discharge Recommendations Home with 29/08 Assist Available,Home Health Transportation Needs at Discharge Private Vehicle,Wheelchair/ Cabulance
--- NOTE | 2023-10-17 15:16 | CM.DANOTE ---
Initial DCP Assessment Visit Note Reviewed EMR and team rounds for status updates. Met pt briefly in the room, he was in the middle of talking on the phone w/family at the time of this visit. Pt lives modified independently with the use of a walker in the house, and a cane when he walks outside to his car. He lives with his and grandson in their own home in [place]. His grandson will plan on transporting him home at time of d/c, which Ortho has indicated as tomorrow, 10/17. There are no home d/c needs identified for CM assistance at this time. Payor: Medicare Attending: Dr. Houston Pt is a 73 year-old M post-op day 1 from a lumbar TLIF surgery. He has been able to get up and walk the halls today with stand by assistance, his pain is well managed, and there have been no postsurgical complications. Pt has a hx of bilateral leg weakness, pain, numbness, and tingling. He has been using the [facility] for the last 3-weeks prior to his pre-surgical assessment, however he still has had little benefit. He has also tried NSAIDS and activity modification with no significant reduction in his pain. He states that he does have all necessary DME in the home for d/c, and his grandson is going to be assisting him with mobility and care needs. DCP will continue to monitor for any evolving care needs prior to d/c. Discharge Planning/Care Management CM Discharge Assessment Start: 10/17/23 15:11 Freq: Status: Active Protocol: Document 10/17/23 15:11 DPL (Rec: 10/17/23 15:16 DPL [id number]) Discharge Planning Assessment Assigned Team Supervisor MANUEL Radford Advance Directives? No History Provided By Patient,Medical Record Expected Length of Stay 2 Has Patient been admitted in last 30 No days? Prior Living Arrangements House Household Members family Type of transporation used prior to Drives own vehicle admit Independent with ADL's No: Modified independent with a walker and a cane for outside. Is patient alert and oriented? Yes Needs Assistance With Home Chores / Shopping Caregiver for Another No Pre-Anesthesia Assessment Start: 10/12/23 09:35 Freq: Status: Active Protocol: Document 10/12/23 09:46 LB (Rec: 10/12/23 10:17 LB [id number]) Pre-Anesthesia Assessment Preferred Name Edward Patient Information Reviewed Via Phone Assessment Assessment Completed With Patient Diagnostic Results BMP/CMP,CBC,EKG Comment 10/05/23 scanned in Primary Care Provider Pan Mahmood Medical Clearance Received Not Applicable Seen Specialist in Last 12 Months Yes Specialist Seen Orthopedist Primary Language Croatian Preferred Language Croatian Developmental Mathematics Professor Required No Height 180.34 cm Weight 118.841 kg Body Mass Index (BMI) 36.5 Hearing Ability Normal Visual Assist Glasses Dentition Type Teeth, Natural Present,Teeth, Missing Barriers to Learning None Other Aids No Hx Anesthesia Reactions Yes: I go through it pretty quickly, Nausea s/p LT TKA Hx Family Anesthesia Reaction No Hx Malignant Hyperthermia No Hx Blood Transfusions No Anesthesia Review Requested No Lcac Radar Operator/Navigator No alcohol intake current alcohol intake frequency 0-2 drinks per day Last drink days (ago) Smoking Status Former smoker Tobacco type cigarettes,smokeless tobacco how long ago did patient quit smoking Quit around age 19 Substance Use Type does not use Musculoskeletal Symptoms Abnormal Gait,Back Pain,Muscle Weakness,Numbness,Tingling History of Falling (Recent or History of No ) Patient is completely paralyzed or No completely immobile Prosthesis or Orthotic Device Cane,Front Wheel Walker Mental Status Oriented to own ability Is patient on oxygen? No Does patient have CHE/SOB No Hx Sleep Apnea No CPAP/BIPAP use not prescribed Currently Taking a Beta Sarkis No Can You Climb a Flight of Stairs Without Yes SOB Hx Chest Pain No Hx SOB No Hx Syncope or Dizziness No Anti-Coagulant Therapy No Has a Housing Coordinator No Cardiac Testing No Hx Pacemaker/ICD No Cardiac Clearance Received Not Applicable Diet Type At Home Regular Dysphagia No Comment Meals on Wheels Chronic UTI No Urinary Catheter Present No Hx Urinary Self Catheterization No Diabetes No HgbA1C 5.5 Date 10/05/23 Hx Drug Resistant Organism No Presence of External or Internal Medical Yes: Left knee prosthesis, Devices right shoulder Have you had any close contact with No someone diagnosed with COVID-19? Are you experiencing any of these No symptoms symptoms? Received a COVID vaccine? No Marital Status Lives With family Current Living Arrangements House Number of Floors (Floors) One Floor Number of Stairs To Enter/Railing? 2 Support System Child/Children,Significant Other Does the Patient Have Assistance After Yes Surgery Patient Discharge Plan Description Return Home Comment Overnight LOS per MD Additional comment Jordan Gandhi to assist with care. Feels Safe in Current Environment Yes Do you have a plan to hurt yourself or No Plan others? Do You Have Any Spiritual Beliefs That No May Affect Your HC Choices? Do You Have Any Cultural Practices That No May Affect Your HC Choices? Who Can We Speak to About Patient's Care Friends, Family Identifying Code for Release of Patient Declines to issue Information Health Care Proxy/Next of Kin Maris Gandhi - Health Care Proxy Emergency Contact Name Maris Greene (formerly [facility]) Emergency Contact Advance Directives? No Power of Netezza Developer No PAC Instructions Assistance for 24 hours post- op,Durable medical equipment, Medications to take/avoid, Nasal antibiotic,No ETOH/ petroleum product on skin DOS, NPO,Post-op transportation,Pre -surgical wash,Sturdy shoes/ comfortable clothes,Do not bring valuables and remove jewelry
[2023-10-17 20:00] VITALS: BP 106/57; PULSE 95; RESP 18; TEMP 37.1; O2SAT 96
[2023-10-17] MEDS: SENNOSIDES 8.6 MG TABLET 17.2 MG PO (20:49)
[2023-10-18 00:28] VITALS: BP 124/60; PULSE 85; RESP 18; TEMP 37.1; O2SAT 96
[2023-10-18] MEDS: OXYCODONE IR 10 MG TABLET PO ×5 (00:30→20:17)
--- NOTE | 2023-10-18 06:40 | DI.RAD.S_ITS ---
PROCEDURE: XR CHEST 1V INDICATIONS: post op cough, h/o pnx TECHNIQUE: One view of the chest was acquired. COMPARISON: Prior chest x-ray 06/10/2022. FINDINGS: Mild bibasilar subsegmental atelectasis and opacification increased on the left, unchanged right medial some of which may be related expiratory result, pleural-parenchymal scarring, however bronchitis, viral infection or other process should be considered. Mildly enlarged cardiomediastinal silhouette unchanged. Mild bilateral perihilar and lower lobe peribronchial thickening, mildly increased. Bones: No suspicious bony lesions. IMPRESSION: Mild bibasilar subsegmental atelectasis and opacification as discussed above. Mildly enlarged cardiomediastinal silhouette unchanged. Mild bilateral perihilar and lower lobe peribronchial thickening, mildly increased. Follow-up suggested. If symptoms persist or worsen, CT chest could be performed Dictated by: Jeffery Vargas M.D. on 10/18/2023 at 9:32 Approved by: Jeffery Vargas M.D. on 10/18/2023 at 9:47
--- NOTE | 2023-10-18 06:41 | P.PN_ITS ---
Subjective Subjective Date Patient Seen: 10/18/23 Time Patient Seen: 06:41 Interval history: Pt lying in bed, appears to be comfortable but when discussing homegoing, he says he doesn't think he can d/t pain. C/o pain in the back of his knees. Feels like he hasn't made adequate progress w/ PT; he was too wiped out to do stair training yesterday. Has a 19 yo grandson and a who 'is really strong' at home for help. Eating and voiding without difficulty. Exam Vital Signs (past 8 hours): - 10/18/23 00:28 Temperature 98.8 F Pulse Rate 85 Respiratory Rate 18 Blood Pressure 124/60 Pulse Oximetry 96 Oxygen Flow Rate 0 Oxygen Delivery Method Room Air Oxygen Flow Rate 0 Narrative Exam Narrative: 5/5 strength in hip flexors, quadriceps, hamstrings, DF, PF, EHL bilaterally. Sensation to light touch intact throughout BLE, calves soft and compressible. Dressing placed intraoperatively is CDI. 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 Will order CXR to r/o pneumonia per pt request. 2) Continue PT. Discussed need for rehab w/ pt if he does not make progress w/ PT today - should be able to get in/out of bed, on/off toilet or chair w/ minimal assistance. 3) Will add cyclobenzaprine for pain control. 4) Hopeful home tomorrow pending CXR results, PT progress, and better pain control. Postoperative Procedures: Procedures Operation Date: 10/16/23 07:45 Actual Procedure Side Surgeon p L4-5, L5-S1 TLIF with posterior instrumentation Not Applicable Magdalena Houston MD s L3-4 Laminectomy Magdalena Houston MD Postoperative day: 2
[2023-10-18] MEDS: ACETAMINOPHEN 325 MG TABLET 650 MG PO ×2 (07:58→15:39)
[2023-10-18 08:00] VITALS: BP 158/77; PULSE 82; RESP 16; TEMP 36.6; O2SAT 99
[2023-10-18] MEDS: FUROSEMIDE 40 MG TABLET 80 MG PO (08:02)
[2023-10-18] MEDS: DOCUSATE 100 MG CAPSULE PO ×2 (08:02→20:17)
--- NOTE | 2023-10-18 10:42 | PT.IPTN ---
Current Diagnoses Spondylolisthesis, lumbar region (10/16/23) Spinal stenosis, lumbar region with neurogenic claudication (10/16/23) Arthrodesis status (10/16/23) Surgery Performed Operation Date: 10/16/23 07:45 Actual Procedures p L4-5, L5-S1 TLIF with posterior instrumentation(Not Applicable) - Magdalena Houston MD s L3-4 Laminectomy - Magdalena Houston MD Physical Therapy Treatment Note M2 PT-IP Current Condition Start: 10/17/23 12:35 Freq: NEEDED Status: Active Protocol: Document 10/17/23 10:45 AB (Rec: 10/17/23 12:55 AB [id number]) Physical Therapy Current Condition Current Condition Evaluation Date 10/17/23 Treatment Diagnosis s/p L4-5, L5S1 TLIF; difficulty in walking Onset Date 10/16/23 M3 PT-IP Subjective Start: 10/17/23 12:35 Freq: NEEDED Status: Active Protocol: Document 10/18/23 11:42 TS (Rec: 10/18/23 12:12 TS [id number]) Subjective Physical Therapy Visit Type Type Treatment Note Visit Start Time 10:42 Visit Stop Time 11:14 Notes Sister Annalee present for caregiver training. Number of AIR CONDITIONING MANAGER Visits 1 Physical Therapy Visit Comments Patient Comments Pt reports pain is much higher today, he is having pain down his legs. Pt is agreeable to PT. Therapy Pain Assessment Pain When Pain Assessed At Rest Pain Present Pain Present Pain Reported Location Bilateral Back Intensity 10 Scale Used Numeric (0 - 10) Pain Management Techniques Distraction,Modification of Treatment,Re-positioning, Timing of Activity with Medications M4 PT-IP Mobility and Gait Start: 10/17/23 12:35 Freq: NEEDED Status: Active Protocol: Document 10/18/23 11:42 TS (Rec: 10/18/23 12:12 TS [id number]) PT-Bed Mobility Assessment Rolling Type of Rolling Log Rolling Level of Assist Standby Assistance Supine to Sit Supine to Sit Standby Assistance PT-Transfer Assessment Sit to and From Stand Sit to and from Stand Minimal Assistance,Moderate Assistance,1 Person Assistance Equipment Transfer Assistive Device Gait Belt,Front Wheeled Walker Orthotic/Prosthetic Devices or Brace: No Comments Mobility Comments Pt recalled 3/3 spinal precautions prior to mobility. Sister dons gait belt. STS from chair ModA with use of FWW and cues for pshing from arms of chair, sister assists pt. Pt reports high amounts of pain in LE's in standing, was agreeable to ambulate. He ambulated ~20' in the room CGA with FWW and a slow step to gait, requires cues to keep walker on the ground. Pt sat back on EOB for rest break. STS from bed with FWW Eddie. Pt performed stairs x2 with REPAIRER VENEER SHEET and use of quad cane, had no buckling or LOB. sit to supine into bed SBA. Nursing notified of pt's pain levels. Gait Assessment Gait Gait Assistance Required: Contact Guard Assist Distance (Feet) 20 Able to Maintain Weight Bearing Status Yes During Gait Assistive Devices Assistive Device Gait Belt,Front Wheeled Walker Orthotic/Prosthetic Devices or Brace: No Gait Deviations General Gait Pattern Ataxic,Decreased Stride Length ,Decreased Feet Clearance Factors Limiting Gait Function Factors Limiting Gait Function Decreased Activity Tolerance, Limited Range of Motion,Pain, Poor Balance,Poor Safety Awareness Stair Climbing Assessment Evaluation Level of Assist On Stairs Minimal Assistance,1 Person Assistance Devices Stair Climbing Assistive Devices Small Base Quad Cane Technique/Endurance Stair Climbing Direction Ascend and Descend Stair Climbing Technique Step to Step Number of Steps Climbed 2 Stair Climbing Set # Repetitions (reps) 1 PT-Balance Assessment Sitting Balance and Reactions Static Sitting Balance Ability Good Dynamic Sitting Balance Ability Fair Standing Balance and Reactions Static Standing Balance Ability Fair Dynamic Standing Balance Ability Fair Device Used FWW M5 PT-IP Objective Assessments Start: 10/17/23 12:35 Freq: NEEDED Status: Active Protocol: Document 10/17/23 10:45 AB (Rec: 10/17/23 12:54 AB [id number]) Orientation Orientation/Cognition Level of Alertness Alert Orientation Name,Place,Situation Language Function Ability Hard of Hearing Safety Awareness Decreased Safety Awareness Memory Description Short Term Impaired Gross Range of Motion Lower Extremity ROM Assessment Within Functional Limits Strength Lower Extremity Strength Assessment Right Impaired Hip 3+/5 Knee 3+/5 Coordination Assessment Gross Coordination Gross Coordination WNL Sensation Assessment Sensation Gross Sensation WNL Muscle Tone Muscle Tone WNL Yes M6 PT-IP Treatment Start: 10/17/23 12:35 Freq: NEEDED Status: Active Protocol: Document 10/18/23 11:42 TS (Rec: 10/18/23 12:12 TS [id number]) Physical Therapy Treatment Education Education Provided Precautions,Safety M7 PT-IP Assessment and Plan Start: 10/17/23 12:35 Freq: NEEDED Status: Active Protocol: Document 10/18/23 11:42 TS (Rec: 10/18/23 12:12 TS [id number]) PT Summary Assessment and Plan Potential Rehabilitation Potential Good Summary Impairments Pain,ROM,Strength,Balance, Coordination,Sensation,Tone, Cognition,Bed Mobility, Transfers,Gait,Activity Tolerance Progress Towards Goals Slow Progress due to Pain Assessment Summary Edward is making progress with his mobility but he is limited by pain. He performs bed mobility SBA and demonstrates good carryover of sequencing. He ambulates short distances in the room with FWW. He performed stairs x2 with use of quad cane and REPAIRER VENEER SHEET. Sister was trained on donning of gait belt, STS's, gait and stairs. PT is recommending home with 24/7 assist at this time. Again, he is having high amounts currently, especially in his legs. Goals Bed Mobility Goal Independent Transfer Goal Independent,Front Wheeled Walker Gait Goal Independent,Front Wheel Walker Gait Distance 150 Other Goals up/down 2 steps using quad cane + REPAIRER VENEER SHEET CGA Days to Meet Goals 5 Frequency of Treatment Frequency Of Treatment Twice a Day Treatment Plan Physical Therapy Treatment Plan Bed Mobility Training,Transfer Training,Gait Training, Therapeutic Exercise,Balance Retraining,Post Op Education, Discharge Planning,Hot or Cold Pack,Neuromuscular Re-ed, Coordination Retraining,Manual Therapy Precautions Lumbar Precautions Log Roll,No Twisting,Limit Bending,Lifting Restriction of 10 lbs,Gait Belt above Incisional Area Recommendations To Nursing Amount of Assist Needed 1 Person Assist Discharge Recommendations PT Discharge Recommendations Home with 24/7 Assist Available,Home Health Transportation Needs at Discharge Private Vehicle,Wheelchair/ Cabulance
--- NOTE | 2023-10-18 12:15 | OT.IP.TRT ---
Current Diagnoses Spondylolisthesis, lumbar region (10/16/23) Spinal stenosis, lumbar region with neurogenic claudication (10/16/23) Arthrodesis status (10/16/23) Surgery Performed Operation Date: 10/16/23 07:45 Actual Procedures p L4-5, L5-S1 TLIF with posterior instrumentation(Not Applicable) - Magdalena Houston MD s L3-4 Laminectomy - Magdalena Houston MD Occupational Therapy Treatment Note M2 OT-IP Current Condition Start: 10/17/23 09:51 Freq: Status: Active Protocol: Document 10/17/23 09:51 [facility] (Rec: 10/17/23 10:09 [facility] [id number]) Occupational Therapy Current Condition Current Condition Evaluation Date 10/17/23 Treatment Diagnosis S/P L4-5, L5-S1 TLIF post instr. L3-4 Laminectomy Diagnosis Onset Date 10/16/23 Post Operative Precautions Lumbar Precautions Log Roll,No Twisting,Limit Bending,Lifting Restriction of 10 lbs,Gait Belt above Incisional Area M3 OT- IP Subjective and Pain Start: 10/17/23 09:51 Freq: Status: Active Protocol: Document 10/18/23 12:24 [facility] (Rec: 10/18/23 12:29 [facility] [id number]) OT- Subjective Occupational Therapy Visit Type Type Treatment Note Visit Start Time 11:59 Visit Stop Time 12:15 Occupational Therapy Visit Comments Patient Comments Pt agreed to get up for lunch. Patient/Caregiver Goals TO go home. OT Pain Assessment Pain When Pain Assessed At Rest Pain Present Pain Present Pain Reported Location Bilateral Back Intensity 5 Scale Used Numeric (0 - 10) M4 OT- IP ADL's Start: 10/17/23 09:51 Freq: Status: Active Protocol: Document 10/17/23 09:51 [facility] (Rec: 10/17/23 10:09 [facility] [id number]) OT GAY-Ujrw-Uqnincc General Evaluation Self-Feeding Ability Independent OT ADL-Grooming General Evaluation Grooming Ability Standby Assistance Areas Needing Assistance Retrieving/Set-up of Grooming Items Comments OT Grooming Comments Set-up while seated. OT ADL-Oral Care General Eval Oral Care Ability Independent OT ADL-Dressing General Eval Lower Body Dressing Ability Maximum Assistance Comments OT Dressing Comments Pt states has all LB dressing equipment besides the front desk assistant and plans on getting one. OT ADL-Toileting General Evaluation Toileting Ability Total Assistance Areas Needing Assistance Empty Catheter or Colostomy Comments OT Toileting Comments Martin in place. OT ADL-Bathing Comments OT Bathing Comments Pt thinking about just sponging off initially. Otherwise just suggested for pt to borrow his 's shower stool and HHSP for his WIS. Educated to cover the dressing from getting it wet. M5 OT- IP IADL's Start: 10/17/23 09:51 Freq: Status: Active Protocol: Document 10/17/23 09:51 [facility] (Rec: 10/17/23 10:09 [facility] [id number]) OT-Instrumental Activities of Daily Living Deficits IADL Deficits Identified Deficits Home Safety Awareness Awareness of Need for Assistance at Home Good Awareness Ability to Problem Solve Emergency Able to Problem Solve Situations Home Safety Comments Pt states his is able to assist him but not lift him. His grandson works night and to be home to assist. Meal Preparation Meal Preparation Caregiver Provides Assist Stores Despatch Hand Stores Despatch Hand Caregiver Provides Assist M6 OT- IP Functional Cognition Start: 10/17/23 09:51 Freq: Status: Active Protocol: Document 10/18/23 12:24 [facility] (Rec: 10/18/23 12:29 [facility] [id number]) Cognitive Factors Limiting Selfcare Function Cognitive Ability Level of Alertness Alert Patient Orientation Name,Age,Birthday,Month,Date, Year,Day of Week,Place, Situation Ability to Follow Commands Able to Follow One Step Commands Cognitive Comments Cognitive Assessment Comments Able to follow log rolling for bed mobility needs. Pt needing cue to push up from the bed to stand to the FWW. M7 OT- IP Mobility and Balance Start: 10/17/23 09:51 Freq: Status: Active Protocol: Document 10/18/23 12:24 [facility] (Rec: 10/18/23 12:29 [facility] [id number]) OT- Bed Mobility Assessment Supine to Sit Supine to Sit Assist Standby Assistance Scooting Scooting to Edge of Bed Standby Assistance OT-Transfer Assessment Sit to and From Stand Sit to and from Stand Contact Guard Assistance Transfers Transfer Ability Contact Guard Assistance Technique Transfer Destination Bed,Chair Transfer Technique Stand Step Pivot Devices Transfer Assistive Devices Gait Belt,Front Wheeled Walker Comments Mobility Comments Pt able to to log rolling with increased time. CGA to stand to the FWW and transfer to the recliner with heavy use of his hand on the FWW. Hospitalist came in to talk to the pt. OT- Balance Assessment Sitting Balance and Reactions Static Sitting Balance Ability Good Dynamic Sitting Balance Ability Good Standing Balance and Reactions Static Standing Balance Ability Good Dynamic Standing Balance Ability Fair M8 OT- IP Objective Assessments Start: 10/17/23 09:51 Freq: Status: Active Protocol: Document 10/17/23 09:51 [facility] (Rec: 10/17/23 10:09 [facility] [id number]) OT Gross Range of Motion Upper Extremity Range of Motion Assessment Left Impaired ROM Impairments LUE grossly WFL OT Strength Comments Strength Comments NT due to back sx. M9 OT- IP Assessment and Plan Start: 10/17/23 09:51 Freq: Status: Active Protocol: Document 10/18/23 12:24 [facility] (Rec: 10/18/23 12:29 [facility] [id number]) OT Summary Assessment and Plan Potential Rehabilitation Potential Good Analytic Complexity at Evaluation Low Summary OT Impairments Pain,Strength,Balance, Functional Mobility,Dressing, Toileting,Bathing,Toilet Transfers,Shower Transfers, Activity Tolerance Progress Towards Goals Slow Progress due to Medical Issues,Slow Progress due to Activity Tolerance Assessment Summary Pt having more pain today. Pt doing much better with bed mobility and coming to stand to the FWW. Pt to go home with assist when medically stable. Goals Grooming Goal Independent Dressing Goal Independent,Long Handled Shoe Horn,Procedure Writer,Sock Aid Toileting Goal Independent,Toilet Paper Aid Bathing Goal Minimal Assistance Toilet Transfer Goal Independent Shower Transfer Goal Standby Assistance Days to Meet Goals 4 Frequency of Treatment Frequency Of Treatment Once a Day Other frequency 5x/week Treatment Plan OT Treatment Plan ADL Training,Functional Mobility,Patient/Family Education,Discharge Planning Other Treatment Recommendations and Next Standing ADL needs Treatment Focus Discharge Recommendations OT Discharge Recommendations Home with Assistance Transportation Needs at Discharge Private Vehicle
--- NOTE | 2023-10-18 12:23 | PM.CN ---
History of Present Illness Consult details Chief complaint: TLIF Narrative: Consult Request by neurosurgery for evaluation of cough and pleurtic chest pain 73 y.o. M with PMH of [place] not on anticoagulation, HTN, Gout, Obestity chronic back pain and worsening lumbar radiculopathy and symptoms of neurogenic claudication here for neurosurgical intervention. Patient developed a non-productive cough this AM with some associate sharp chest pain when he was coughing. He endorses no other significant problems including no fever/chills, shortness of breath, chest pain at rest or with exertion. He is concerned because last time he had a surgery he got a pneumonia which did not require hospitalization but for which he had to take some antibiotics and just wanted to make sure he got checked out today. CXR obtained showing the following. IMPRESSION: Mild bibasilar subsegmental atelectasis and opacification as discussed above. Mildly enlarged cardiomediastinal silhouette unchanged. Mild bilateral perihilar and lower lobe peribronchial thickening, mildly increased. Follow-up suggested. If symptoms persist or worsen, CT chest could be performed Meds Home Medications and Allergies Home Medications Medication Instructions Recorded Confirmed Type furosemide 40 mg tablet 80 mg PO DAILY 05/31/22 10/12/23 History celecoxib 200 mg capsule (Celebrex) 200 mg PO PRN PRN Pain (Scale 10/12/23 10/12/23 History Score 4-6) Allergies Allergy/AdvReac Type Severity Reaction Status Date / Time No Known Drug Allergies Allergy Verified 10/16/23 06:37 Review of Systems Review of Systems ROS: Yes All systems reviewed with the patient and are negative except as otherwise documented Exam Vital Signs (past 8 hours): - 10/18/23 08:00 Temperature 97.9 F Pulse Rate 82 Respiratory Rate 16 Blood Pressure 158/77 H Pulse Oximetry 99 Oxygen Flow Rate 0 Oxygen Delivery Method Room Air Oxygen Flow Rate 0 Narrative Exam Narrative: general: not in distress, well appearing lung: moving air well bilaterally, no wheezing or adventitious sounds appreciated, normal effort cardiac: irregular, normal rate extremities: minimal edema neuro: alert and oriented without focal deficits Objective Labs 10/17/23 05:58 [facility] Medical History Anesthesia (~2022) Osteoarthritis Numbness Neuropathy Amputation of toe HTN (hypertension) Arthritis Gout Surgical History History of shoulder replacement (~2022) History of carpal tunnel surgery of right wrist History of carpal tunnel surgery of left wrist History of total left knee replacement (02/28/22) Hx of cholecystectomy Hx of arthroscopy of left knee Social History household members: family Tobacco & Substance Use Smoking Status: Former smoker alcohol intake: current Assessment & Plan Assessment & Plan narrative: #Non-productive cough etiology yet to be determined but no obvious signs of bacterial pneumonia at this time but low threshold to start antibiotics if he clinically worsens. will obtain work-up and continue to follow. thank-you for the consult, hospitalist will continue to follow. obtain CBC, CMP, CRP, Procal, Covid/Flu pcr encourage respiratory incentive spirometry, flutter valve if NSAIDs not contra-indicated they can be used for pain Time-Based Coding :: [TOTAL MINUTES] spent with patient and on the chart (including review of chart, obtaining history, exam, reviewing outside data, placing orders, documenting exam and treatment plan, and counseling patient) on [DATE].
--- NOTE | 2023-10-18 13:03 | CM.DPC ---
DCP Cont. Reviewed EMR and team rounds for status updates. Pt expressed concerns for his pain, and wanted to also be cleared by x-ray for r/o pneumonia, due to persistent cough. Not yet ready for d/c today, likely will d/c home tomorrow 10/18.
[2023-10-18] MEDS: CYCLOBENZAPRINE 10 MG TABLET PO (13:21)
[2023-10-18 14:27] LABS: Influenza A - CEPHEID Flu A NEGATIVE (NEGATIVE); Influenza B - CEPHEID Flu B NEGATIVE (NEGATIVE); Respiratory Syncytial Virus Negative (Negative)
[2023-10-18 14:47] LABS: COVID-19 CEPHEID 4-PLEX PCR Negative (Negative)
[2023-10-18 15:04] LABS: Add Manual Diff / Slide Review NO; Basophils Absolute Auto 100 /uL (0-100); Basophils Percent Auto 0.6 % (0-2); Eosinophils Absolute Auto 100 /uL (0-450); Eosinophils Percent Auto 0.8 % (2-4); Hematocrit 38.6 % (41-53); Lymphocytes Absolute Auto 2200 /uL (1100-4500); Lymphocytes Percent Auto 16.8 % (25-40); Mean Corpuscular HGB Conc 33.6 % (30-36); Mean Corpuscular Hemoglobin 29.8 PG (26-34); Mean Corpuscular Volume 88.7 fL (80-100); Monocytes Absolute Auto 1300 /uL (0-900); Monocytes Percent Auto 10.1 % (3-14); Neutrophils Absolute Auto 9300 /uL (1500-7000); Neutrophils Percent Auto 71.7 % (50-75); Platelet Count 293 X10^3/uL (150-400); Red Blood Cell Count 4.35 X10^6/uL (4.5-5.9); Red Cell Distribution Width 15.1 % (11.6-14.8); White Blood Cell Count 12.9 X10^3/uL (4.5-11.0)
[2023-10-18 15:18] LABS: Alanine Aminotransferase 280 IU/L (<50); Albumin 3.9 g/dL (3.5-5.0); Albumin Globulin Ratio 1.2 (1.0-2.8); Alkaline Phosphatase 335 U/L (38-126); Aspartate Aminotransferase 385 IU/L (17-59); BUN Creatinine Ratio 22.4 (6-22); Bilirubin Total 1.1 mg/dL (0.2-1.3); Blood Urea Nitrogen 22 mg/dL (9-20); C-Reactive Protein Quant 8.5 mg/dL (<1.0); Calcium 8.4 mg/dL (8.4-10.2); Carbon Dioxide 30 mmol/L (22-32); Chloride 100 mmol/L (98-107); Estimated Glomerular Filt Rate > 60 mL/min (>60); Globulin 3.3 g/dL (1.7-4.1); Glucose 122 mg/dL (80-110); HEMOLYSIS < 15 (0-50); Potassium 3.5 mmol/L (3.4-5.1); Sodium 137 mmol/L (137-145); Total Protein 7.2 g/dL (6.3-8.2)
[2023-10-18 15:31] LABS: Procalcitonin 0.155 ng/mL (<0.5)
--- NOTE | 2023-10-18 16:15 | PT.IPTN ---
Current Diagnoses Spondylolisthesis, lumbar region (10/16/23) Spinal stenosis, lumbar region with neurogenic claudication (10/16/23) Arthrodesis status (10/16/23) Surgery Performed Operation Date: 10/16/23 07:45 Actual Procedures p L4-5, L5-S1 TLIF with posterior instrumentation(Not Applicable) - Magdalena Houston MD s L3-4 Laminectomy - Magdalena Houston MD Physical Therapy Treatment Note M2 PT-IP Current Condition Start: 10/17/23 12:35 Freq: NEEDED Status: Active Protocol: Document 10/17/23 10:45 AB (Rec: 10/17/23 12:55 AB [id number]) Physical Therapy Current Condition Current Condition Evaluation Date 10/17/23 Treatment Diagnosis s/p L4-5, L5S1 TLIF; difficulty in walking Onset Date 10/16/23 M3 PT-IP Subjective Start: 10/17/23 12:35 Freq: NEEDED Status: Active Protocol: Document 10/18/23 16:38 TS (Rec: 10/18/23 16:55 TS [id number]) Subjective Physical Therapy Visit Type Type Treatment Note Visit Start Time 16:15 Visit Stop Time 16:35 Number of AUTOMOTIVE SPECIALTY TECHNICIAN Visits 2 Physical Therapy Visit Comments Patient Comments Pt found resting in chair, continues to report 10/10 pain , he is agreeable to PT. Therapy Pain Assessment Pain When Pain Assessed At Rest Pain Present Pain Present Pain Reported Location Bilateral Back Intensity 10 Scale Used Numeric (0 - 10) Description Sharp,Tender Pain Behaviors Calling Out,Facial Grimacing, Moaning,Restlessness,Wincing Pain Management Techniques Distraction,Modification of Treatment,Re-positioning, Timing of Activity with Medications M4 PT-IP Mobility and Gait Start: 10/17/23 12:35 Freq: NEEDED Status: Active Protocol: Document 10/18/23 16:38 TS (Rec: 10/18/23 16:55 TS [id number]) PT-Transfer Assessment Sit to and From Stand Sit to and from Stand Moderate Assistance,1 Person Assistance Equipment Transfer Assistive Device Gait Belt,Front Wheeled Walker Orthotic/Prosthetic Devices or Brace: No Comments Mobility Comments STS with FWW ModA, pt cued for pushing from arms of chair. He reports 10/10 pain in standing. He ambulated ~15' in room Eddie with FWW. He is unsteady and has some tremors in LE's, pt feels his legs will give out on him. He sat back in chair, all needs met. Gait Assessment Gait Gait Assistance Required: Minimum Assistance,1 Person Assist Distance (Feet) 15 Able to Maintain Weight Bearing Status Yes During Gait Assistive Devices Assistive Device Gait Belt,Front Wheeled Walker Gait Deviations General Gait Pattern Ataxic,Decreased Stride Length ,Decreased Feet Clearance Factors Limiting Gait Function Factors Limiting Gait Function Decreased Activity Tolerance, Limited Range of Motion,Pain, Poor Balance,Poor Safety Awareness PT-Balance Assessment Sitting Balance and Reactions Static Sitting Balance Ability Good Dynamic Sitting Balance Ability Fair Standing Balance and Reactions Static Standing Balance Ability Fair Dynamic Standing Balance Ability Fair Device Used FWW M5 PT-IP Objective Assessments Start: 10/17/23 12:35 Freq: NEEDED Status: Active Protocol: Document 10/17/23 10:45 AB (Rec: 10/17/23 12:54 AB [id number]) Orientation Orientation/Cognition Level of Alertness Alert Orientation Name,Place,Situation Language Function Ability Hard of Hearing Safety Awareness Decreased Safety Awareness Memory Description Short Term Impaired Gross Range of Motion Lower Extremity ROM Assessment Within Functional Limits Strength Lower Extremity Strength Assessment Right Impaired Hip 3+/5 Knee 3+/5 Coordination Assessment Gross Coordination Gross Coordination WNL Sensation Assessment Sensation Gross Sensation WNL Muscle Tone Muscle Tone WNL Yes M6 PT-IP Treatment Start: 10/17/23 12:35 Freq: NEEDED Status: Active Protocol: Document 10/18/23 16:38 TS (Rec: 10/18/23 16:55 TS [id number]) Physical Therapy Treatment Education Education Provided Precautions,Safety M7 PT-IP Assessment and Plan Start: 10/17/23 12:35 Freq: NEEDED Status: Active Protocol: Document 10/18/23 16:38 TS (Rec: 10/18/23 16:55 TS [id number]) PT Summary Assessment and Plan Potential Rehabilitation Potential Good Summary Impairments Pain,ROM,Strength,Balance, Coordination,Sensation,Tone, Cognition,Bed Mobility, Transfers,Gait,Activity Tolerance Progress Towards Goals Slow Progress due to Pain Assessment Summary Edward continues to make slow progress with his mobility. He continues to have high pain, reports 10/10 with mobility. He requires ModA for STS with FWW from lower surface of the chair. He ambulates short distances in the room. He is unsteady with gait and has some tremoring in his LE's with ambulation. Pt feels his legs might give out at times. PT is recommending home with 24/7 assist with HHPT vs SNF. Pt is open to going to SNF for 24/7 care. He could benefit from SNF to improve strength and functional mobility. Pain is his limiting factor to improving his mobility. Goals Bed Mobility Goal Independent Transfer Goal Independent,Front Wheeled Walker Gait Goal Independent,Front Wheel Walker Gait Distance 150 Other Goals up/down 2 steps using quad cane + COTTON PICKER OPERATOR CGA Days to Meet Goals 5 Frequency of Treatment Frequency Of Treatment Twice a Day Treatment Plan Physical Therapy Treatment Plan Bed Mobility Training,Transfer Training,Gait Training, Therapeutic Exercise,Balance Retraining,Post Op Education, Discharge Planning,Hot or Cold Pack,Neuromuscular Re-ed, Coordination Retraining,Manual Therapy Precautions Lumbar Precautions Log Roll,No Twisting,Limit Bending,Lifting Restriction of 10 lbs,Gait Belt above Incisional Area Recommendations To Nursing Amount of Assist Needed 1 Person Assist Discharge Recommendations PT Discharge Recommendations Home with 24/7 Assist Available,Home Health,SNF Rehab,Home vs SNF Transportation Needs at Discharge Private Vehicle,Wheelchair/ Cabulance
--- NOTE | 2023-10-18 16:22 | PM.PNPO.1 ---
Subjective Subjective Interval history: Notified by nursing staff patient has increased lower back pain and spasms radiating down legs not controlled with oxycodone or cyclobezaprine. Hospitalist consulted for for evaluation of cough and pleurtic chest pain. Hospitalist notified of elevated AST, ALT, Alk Phos and CRP. He agreed to proceed with 4mg of dexamethasone to aleviate pain and spams and will monitor for increased temperature or worsening of pleurtic chest pain. Exam Vital Signs (past 8 hours): Oxygen Delivery Method Room Air Oxygen Flow Rate 0 Objective Labs 10/18/23 14:43 10/18/23 14:43 Labs: Laboratory Results - last 24 hr 10/18/23 10/18/23 13:36 14:43 WBC 12.9 H RBC 4.35 L Hgb 13.0 L Hct 38.6 L MCV 88.7 MCH 29.8 MCHC 33.6 RDW 15.1 H Plt Count 293 Neut % (Auto) 71.7 Lymph % (Auto) 16.[address] [place] % (Auto) 10.1 Eos % (Auto) 0.8 L Baso % (Auto) 0.6 Neut # (Auto) 9300 H Lymph # (Auto) 2200 [place] # (Auto) 1300 H Eos # (Auto) 100 Baso # (Auto) 100 Sodium 137 Potassium 3.5 Chloride 100 Carbon Dioxide 30 BUN 22 H Creatinine 0.98 Estimated GFR > 60 BUN/Creatinine Ratio 22.4 H Glucose 122 H Calcium 8.4 Total Bilirubin 1.1 AST 385 H ALT 280 H Alkaline Phosphatase 335 H C-Reactive Protein 8.5 H Total Protein 7.2 Albumin 3.9 Globulin 3.3 Albumin/Globulin Ratio 1.2 Procalcitonin 0.155 SARS-CoV-2 (PCR) Negative Influenza A (RT-PCR) Flu a negative Influenza B (RT-PCR) Flu b negative RSV (PCR) Negative [facility] Medical History Anesthesia (~2022) Osteoarthritis Numbness Neuropathy Amputation of toe HTN (hypertension) Arthritis Gout Surgical History History of shoulder replacement (~2022) History of carpal tunnel surgery of right wrist History of carpal tunnel surgery of left wrist History of total left knee replacement (02/28/22) Hx of cholecystectomy Hx of arthroscopy of left knee Social History household members: family Smoking Status: Former smoker alcohol intake: current Assessment & Plan Post-op Postoperative Procedures: Procedures Operation Date: 10/16/23 07:45 Actual Procedure Side Surgeon p L4-5, L5-S1 TLIF with posterior instrumentation Not Applicable Magdalena Houston MD s L3-4 Laminectomy Magdalena Houston MD
[2023-10-18] MEDS: DEXAMETHASONE 4 MG/ML VIAL IV (16:33)
[2023-10-18 20:05] VITALS: BP 124/86; PULSE 88; RESP 18; TEMP 36.4; O2SAT 96
[2023-10-18] MEDS: SENNOSIDES 8.6 MG TABLET 17.2 MG PO (20:17)
--- NOTE | 2023-10-19 05:49 | PM.PN.1 ---
Subjective Subjective Interval history: feeling good, cough resolved Exam Vital Signs (past 8 hours): Oxygen Delivery Method Room Air Oxygen Flow Rate 0 Narrative Exam Narrative: gen: well appearing lung: normal effort, CTA B/L cardio: RRR Objective Labs 10/18/23 14:43 10/18/23 14:43 Labs: Laboratory Results - last 24 hr 10/18/23 10/18/23 13:36 14:43 WBC 12.9 H RBC 4.35 L Hgb 13.0 L Hct 38.6 L MCV 88.7 MCH 29.8 MCHC 33.6 RDW 15.1 H Plt Count 293 Neut % (Auto) 71.7 Lymph % (Auto) 16.8 L [place] % (Auto) 10.1 Eos % (Auto) 0.8 L Baso % (Auto) 0.6 Neut # (Auto) 9300 H Lymph # (Auto) 2200 [place] # (Auto) 1300 H Eos # (Auto) 100 Baso # (Auto) 100 Sodium 137 Potassium 3.5 Chloride 100 Carbon Dioxide 30 BUN 22 H Creatinine 0.98 Estimated GFR > 60 BUN/Creatinine Ratio 22.4 H Glucose 122 H Calcium 8.4 Total Bilirubin 1.1 AST 385 H ALT 280 H Alkaline Phosphatase 335 H C-Reactive Protein 8.5 H Total Protein 7.2 Albumin 3.9 Globulin 3.3 Albumin/Globulin Ratio 1.2 Procalcitonin 0.155 SARS-CoV-2 (PCR) Negative Influenza A (RT-PCR) Flu a negative Influenza B (RT-PCR) Flu b negative RSV (PCR) Negative PFSH Medical History Anesthesia (~2022) Osteoarthritis Numbness Neuropathy Amputation of toe HTN (hypertension) Arthritis Gout Surgical History History of shoulder replacement (~2022) History of carpal tunnel surgery of right wrist History of carpal tunnel surgery of left wrist History of total left knee replacement (02/28/22) Hx of cholecystectomy Hx of arthroscopy of left knee Social History household members: family Smoking Status: Former smoker alcohol intake: current Assessment & Plan Assessment & Plan narrative: #Non-productive cough #Elevated LFTs Patients respiratory status continues to remain stable, no need to start antibiotics at this time. He should have his LFTs followed up by PCP on discharge. Hospitalist will sign-off please let us know if something changes and feel free to reach out with any further questions. Time-Based Coding :: [TOTAL MINUTES] spent with patient and on the chart (including review of chart, obtaining history, exam, reviewing outside data, placing orders, documenting exam and treatment plan, and counseling patient) on [DATE].
[2023-10-19] MEDS: OXYCODONE IR 10 MG TABLET PO ×4 (05:58→15:30)
--- NOTE | 2023-10-19 07:46 | PM.DS.1 ---
History of Present Illness History of Present Illness Chief complaint: TLIF Narrative: Buddy is a 73 year old male who is POD#3 s/p L4-5, L5-S1 TLIF by Dr. Houston. The morning patient reports he is doing well, significantly improved pain from yesterday. He reports the bilateral lower leg radiating pain has resolved with the dexamethasone dose he received yesterday. He lives at home with his 19-year-old grandson and , his is able to provide minimal support and his grandson can provide more support. They only have two steps into the home, no steps within the home itself. He would like to discharge to home. He reports his breathing is much improved from prior in his hospital admission as well. Urinating well on his own without issue. Currently denies any chest pain, shortness of breath, nausea, vomiting, fever, chills. Operative Date/Time/Diagnoses Date of procedure: 10/16/23 Time of procedure: 07:40 Pre-op diagnosis: 1. L3-4, L4-5, L5-S1 spinal stenosis with neurogenic claudication 2. L4-5 anterolisthesis 3. L5-S1 foramen stenosis with radiculopathy Post-op diagnosis: same Procedure & Clinicians Procedure: 1. L4-5, L5-S1 Postero-lateral and posterior interbody fusion 2. L4-5, L5-S1 interbody cage placement. 3. L4-5, L5-S1 decompressive laminectomy with bilateral facetecomies 4. L4-5, L5-S1 Posterior segmental instrumentation 5. L3-4 laminectomies with partial facetecomies 6. [place] of bone marrow from iliac crest 7. Utilization of microsurgical technique and operating microscope 8. Utiliziation of robotic assisted navitation Same procedure as scheduled: Yes Indications: Patient has been having chronic back pain and worsening lumbar radiculopathy and symptoms of neurogenic claudication. Patient was found have significant spinal stenosis at L3-4 L4-5 L5-S1 level as well as L4-5 anterolisthesis correlating with patient's symptoms. Patient failed multiple conservative management with worsening pain weakness and numbness in his lower extremity. Patient has been having difficulty performing activity of daily living. After discussing risks benefits of treatment options, patient elected proceed with surgery. Surgeon: Magdalena Houston Cleaner Touch Up Worker: Ashley Jade Click Yes if Unassisted: No Anesthesia Type: General Discharge Providers Provider Date of admission: 10/16/23 06:06 Discharge Date: 10/19/23 Consults: 10/16/23 15:08 Consult to Occupational Therapy Evaluate & Treat Comment: Physician Instructions: Evaluate and treat Consult to Physical Therapy Evaluate & Treat Comment: Physician Instructions: Evaluate and Treat 10/18/23 11:48 Consult to Hospitalist Service Routine Comment: Consulting Provider: Freedom Ellison Reason for consultation: CXR findings Has provider been notified: Yes Discharge provider: Haley Summers PA-C Summary Hospital Course Discharge Diagnosis: stable s/p L4-5, L5-S1 TLIF Hospital Course: Hospital course complicated by poor pain control on POD#1 and 2 as well as cough and pleurtic chest pain on POD#2, now resolved. Exam Vital Signs (past 8 hours): Oxygen Delivery Method Room Air Oxygen Flow Rate 0 Narrative Exam Narrative: Patient lying comfortably in bed during our interview today. No acute distress. AOx3. 5/5 strength with DF, PF, EHL bilaterally. Gross sensation intact throughout bilateral lower extremities. Calves soft and non-tender bilaterally. SCDs are on and functioning. Brisk capillary refill, pulses intact. Post-surgical dressing clean, dry and intact over the lumbar spine without drainage. Objective Labs 10/18/23 14:43 10/18/23 14:43 Labs: Laboratory Results - last 24 hr 10/18/23 10/18/23 13:36 14:43 WBC 12.9 H RBC 4.35 L Hgb 13.0 L Hct 38.6 L MCV 88.7 MCH 29.8 MCHC 33.6 RDW 15.1 H Plt Count 293 Neut % (Auto) 71.7 Lymph % (Auto) 16.8 L [place] % (Auto) 10.1 Eos % (Auto) 0.8 L Baso % (Auto) 0.6 Neut # (Auto) 9300 H Lymph # (Auto) 2200 [place] # (Auto) 1300 H Eos # (Auto) 100 Baso # (Auto) 100 Sodium 137 Potassium 3.5 Chloride 100 Carbon Dioxide 30 BUN 22 H Creatinine 0.98 Estimated GFR > 60 BUN/Creatinine Ratio 22.4 H Glucose 122 H Calcium 8.4 Total Bilirubin 1.1 AST 385 H ALT 280 H Alkaline Phosphatase 335 H C-Reactive Protein 8.5 H Total Protein 7.2 Albumin 3.9 Globulin 3.3 Albumin/Globulin Ratio 1.2 Procalcitonin 0.155 SARS-CoV-2 (PCR) Negative Influenza A (RT-PCR) Flu a negative Influenza B (RT-PCR) Flu b negative RSV (PCR) Negative [facility] Medical History Anesthesia (~2022) Osteoarthritis Numbness Neuropathy Amputation of toe HTN (hypertension) Arthritis Gout Surgical History History of shoulder replacement (~2022) History of carpal tunnel surgery of right wrist History of carpal tunnel surgery of left wrist History of total left knee replacement (02/28/22) Hx of cholecystectomy Hx of arthroscopy of left knee Social History household members: family Smoking Status: Former smoker alcohol intake: current Discharge Assessment & Plan Assessment and Plan Assessment: Stable s/p L4-5, L5-S1 TLIF. Plan of Treatment: 1) Plan to discharge to home today with grandson and pending PT evaluation and progress. 2) Continue multimodal pain management. 3) Mechanical DVT prophylaxis. 4)Maintain BLT restrictions. 5) Keep dressing intact, clean, dry until 2 week postop appointment. No soaking the incision site in pools or tubs. No topical ointments or creams to the incision site. 6) Follow up at [facility] in 2 weeks for a postop appointment and wound check. All patient's questions were answered, they demonstrates understanding and are in agreement with the plan. Call our office if any questions or concerns arise. Discharge Plan Discharge Plan Patient Disposition: Home Discharge orders & Medications Prescriptions: New cyclobenzaprine 10 mg Tablet 10 mg PO Q8HR PRN (Reason: Spasms) Qty: 14 0RF acetaminophen 325 mg Tablet 650 mg PO Q6H PRN (Reason: Fever/Mild Pain (1-3)) Qty: 90 0RF docusate sodium 100 mg Capsule 100 mg PO BID Qty: 60 0RF ondansetron 4 mg Tablet,Disintegrating 4 mg sublingual Q4HR PRN (Reason: Nausea) Qty: 10 0RF oxycodone 5 mg Tablet 5 mg PO Q4H PRN (Reason: Pain, Moderate (4-6)) Qty: 30 0RF methylprednisolone [Methylpred DP] 4 mg tablets,dose pack See Rx Instructions .ROUTE .COMPLEX Qty: 21 0RF Rx Instructions: orally per package directions Continued furosemide 40 mg Tablet 80 mg PO DAILY Discontinued celecoxib [Celebrex] 200 mg Capsule 200 mg PO PRN PRN (Reason: Pain (Scale Score 4-6)) Follow up/Referrals: Magdalena Houston MD [Physician] - 11/02/23 9:00 am (Follow up w/ Maycol Noel PA-C, at [facility] in [place].) Diet/Activity/Treatments Diet: Diet as Tolerated Activity: No deep bending or twisting at the waist. No lifting more than 10 pounds. Cold/Heat Therapy: Heating pad to low back as needed for muscle spasm. Skin/Wound/Dressing Care Report to your healthcare provider any signs of infection, such as:: chills, fever, night sweats, unusual drainage and unusual redness Dressing: May shower. Keep dressings as dry as possible. If dressings become wet or dirty, may remove and replace with clean, dry gauze. No bathing or otherwise soaking incisions. Do not apply any creams, lotions, or ointments to incisions. Visit Report/Discharge Packet Instructions: DI for Prescription Opioid Use, DI for Transforaminal Lumbar Interbody Fusion Stand Alone Forms: Patient Portal/API, Stroke Signs & Symptoms
[2023-10-19 08:00] VITALS: BP 124/74; PULSE 79; RESP 16; TEMP 36.2; O2SAT 96
[2023-10-19] MEDS: FUROSEMIDE 40 MG TABLET 80 MG PO (08:56)
[2023-10-19] MEDS: polyethylene glycoL 3350 17 GM POWD.PACK PO (08:56)
[2023-10-19] MEDS: DOCUSATE 100 MG CAPSULE PO (08:56)
[2023-10-19] MEDS: DEXAMETHASONE 4 MG/ML VIAL IV (09:23)
--- NOTE | 2023-10-19 10:15 | PT.IPTN ---
Current Diagnoses Spondylolisthesis, lumbar region (10/16/23) Spinal stenosis, lumbar region with neurogenic claudication (10/16/23) Arthrodesis status (10/16/23) Surgery Performed Operation Date: 10/16/23 07:45 Actual Procedures p L4-5, L5-S1 TLIF with posterior instrumentation(Not Applicable) - Magdalena Houston MD s L3-4 Laminectomy - Magdalena Houston MD Physical Therapy Treatment Note M2 PT-IP Current Condition Start: 10/17/23 12:35 Freq: NEEDED Status: Active Protocol: Document 10/17/23 10:45 AB (Rec: 10/17/23 12:55 AB [id number]) Physical Therapy Current Condition Current Condition Evaluation Date 10/17/23 Treatment Diagnosis s/p L4-5, L5S1 TLIF; difficulty in walking Onset Date 10/16/23 M3 PT-IP Subjective Start: 10/17/23 12:35 Freq: NEEDED Status: Active Protocol: Document 10/19/23 10:27 TS (Rec: 10/19/23 10:34 TS [id number]) Subjective Physical Therapy Visit Type Type Treatment Note Visit Start Time 10:15 Visit Stop Time 10:28 Number of TRIMMER AND REINFORCER Visits 3 Physical Therapy Visit Comments Patient Comments Pt found resting in bed, is agreeable to PT. Therapy Pain Assessment Pain When Pain Assessed At Rest Pain Present Pain Present Pain Reported M4 PT-IP Mobility and Gait Start: 10/17/23 12:35 Freq: NEEDED Status: Active Protocol: Document 10/19/23 10:27 TS (Rec: 10/19/23 10:34 TS [id number]) PT-Bed Mobility Assessment Rolling Level of Assist Standby Assistance Supine to Sit Supine to Sit Standby Assistance Scooting Scooting to Edge of Bed Standby Assistance PT-Transfer Assessment Sit to and From Stand Sit to and from Stand Minimal Assistance,1 Person Assistance Equipment Transfer Assistive Device Gait Belt,Front Wheeled Walker Orthotic/Prosthetic Devices or Brace: No Comments Mobility Comments Supine to sit SBA with good recall of logroll. STS with FWW Eddie. pt ambulated ~10' in the room, reports le's fatiguing and requires to sit in chair. STS again form the chair Eddie with FWW. He ambulates ~15' CGA with FWW, pt continues to report fatigue in legs. Pt was left in chair , all needs met. Gait Assessment Gait Gait Assistance Required: Contact Guard Assist,1 Person Assist Distance (Feet) 25 Able to Maintain Weight Bearing Status Yes During Gait Assistive Devices Assistive Device Gait Belt,Front Wheeled Walker Orthotic/Prosthetic Devices or Brace: No Gait Deviations General Gait Pattern Ataxic,Decreased Stride Length ,Decreased Feet Clearance Factors Limiting Gait Function Factors Limiting Gait Function Decreased Activity Tolerance, Limited Range of Motion,Pain, Poor Balance,Poor Safety Awareness PT-Balance Assessment Sitting Balance and Reactions Static Sitting Balance Ability Good Dynamic Sitting Balance Ability Fair Standing Balance and Reactions Static Standing Balance Ability Fair Dynamic Standing Balance Ability Fair Device Used FWW M5 PT-IP Objective Assessments Start: 10/17/23 12:35 Freq: NEEDED Status: Active Protocol: Document 10/17/23 10:45 AB (Rec: 10/17/23 12:54 AB [id number]) Orientation Orientation/Cognition Level of Alertness Alert Orientation Name,Place,Situation Language Function Ability Hard of Hearing Safety Awareness Decreased Safety Awareness Memory Description Short Term Impaired Gross Range of Motion Lower Extremity ROM Assessment Within Functional Limits Strength Lower Extremity Strength Assessment Right Impaired Hip 3+/5 Knee 3+/5 Coordination Assessment Gross Coordination Gross Coordination WNL Sensation Assessment Sensation Gross Sensation WNL Muscle Tone Muscle Tone WNL Yes M6 PT-IP Treatment Start: 10/17/23 12:35 Freq: NEEDED Status: Active Protocol: Document 10/19/23 10:27 TS (Rec: 10/19/23 10:34 TS [id number]) Physical Therapy Treatment Education Education Provided Precautions,Safety M7 PT-IP Assessment and Plan Start: 10/17/23 12:35 Freq: NEEDED Status: Active Protocol: Document 10/19/23 10:27 TS (Rec: 10/19/23 10:34 TS [id number]) PT Summary Assessment and Plan Potential Rehabilitation Potential Good Summary Progress Towards Goals Slow Progress due to Pain Assessment Summary Edward made some progress with his mobility this session. He is limited in his mobility by pain and fatigue in his legs. He ambulated x10' and x15' in the room today. He continues to perform bed mobility SBA. He is going to have the fire dept assist him into the house . His spouse and grandson will assist him at home. PT is recommending home with / assist. Goals Bed Mobility Goal Independent Transfer Goal Independent,Front Wheeled Walker Gait Goal Independent,Front Wheel Walker Gait Distance 150 Other Goals up/down 2 steps using quad cane + EQUIPMENT [employer]ICE LEAD CGA Days to Meet Goals 5 Frequency of Treatment Frequency Of Treatment Twice a Day Treatment Plan Physical Therapy Treatment Plan Bed Mobility Training,Transfer Training,Gait Training, Therapeutic Exercise,Balance Retraining,Post Op Education, Discharge Planning,Hot or Cold Pack,Neuromuscular Re-ed, Coordination Retraining,Manual Therapy Precautions Lumbar Precautions Log Roll,No Twisting,Limit Bending,Lifting Restriction of 10 lbs,Gait Belt above Incisional Area Recommendations To Nursing Amount of Assist Needed 1 Person Assist Discharge Recommendations PT Discharge Recommendations Home with 29/08 Assist Available,Home Health Transportation Needs at Discharge Private Vehicle,Wheelchair/ Cabulance
--- NOTE | 2023-10-19 11:26 | CM.DPNOTE ---
Addendum entered by MANUEL Vyas 10/20/23 14:26: Post DC Note: [place] from Diego at [facility] that they do not serve [facility]. Diego was able to pass along this referral to [facility] and patient was contacted and updated. Original Note: DC Note Discharge home today with family to assist. Patient requests HH and has no agency preference. Discussed this referral with Julienne at [facility], Geary does go to [place] if it is not towards [place]. Reviewed patient's address and it appears to be in [place]. [facility] accepts for PT/OT/[employer]ER, availability within 24-48hrs. F2F and HH order completed. Patient updated and agreeable, brochure provided. SHANE Brandt, kindly agreed to send this referral to [facility]. Plan: Discharge home w/family and [facility] services via family transport. ADELFO
[2023-10-19] MEDS: ACETAMINOPHEN 325 MG TABLET 650 MG PO (12:33)
--- NOTE | 2023-10-19 14:55 | OT.IPNOTE ---
Finalized OT needs and suggestions with pt , no charge and awaiting to be picked up.
--- NOTE | 2023-10-19 16:45 | PC.NURSE ---
Addendum entered by Maryuri Forman R.N. 10/19/23 16:49: dressing to concepcion changed. [place] c/d/i without swelling or redness. Original Note: Patient is A&OX4, VSS, afebrile. Patient reports pain still 7/10 this a.m. but much improved with Steroids. Patient calls appropriately for assistance. He reports few days without a BM and given prn miralax with success. He is cleared for discharge today, home with sister. She is called and arrives from [place] at 1500. He verbalizes understanding of medications, activity limitations, site care, s/sx of infection as well as follow up appointmen. He is escorted via w/ch to private vehicle for discharge home today with his sister with all of his personal belongings at 1537 this afternoon.
== END 2023-10-19 15:37 | disposition home health service (06) | DRG 455 ==
PROVIDERS: Student in an Organized Health Care Education/Training Program; Admitting Provider Orthopaedic Surgery Orthopaedic Surgery of the Spine; Referring Provider Orthopaedic Surgery Orthopaedic Surgery of the Spine; Visit Provider Orthopaedic Surgery Orthopaedic Surgery of the Spine
PROC: 0SG00AJ Fusion of Lumbar Vertebral Joint with Interbody Fusion Device, Posterior Approach, Anterior Column, Open Approach (ICD-10-PCS; principal; 2023-10-16 07:45)
PROC: 0SG00AJ Fusion of Lumbar Vertebral Joint with Interbody Fusion Device, Posterior Approach, Anterior Column, Open Approach (ICD-10-PCS; 2023-10-16 07:45)
DX: M48.062 Spinal stenosis, lumbar region with neurogenic claudication (principal); M43.16 Spondylolisthesis, lumbar region; M48.07 Spinal stenosis, lumbosacral region; M54.16 Radiculopathy, lumbar region; M54.17 Radiculopathy, lumbosacral region; R07.9 Chest pain, unspecified; R05.8 Other specified cough; R74.01 Elevation of levels of liver transaminase levels; G89.18 Other acute postprocedural pain; Z87.891 Personal history of nicotine dependence
CPT/HCPCS: 0241U; 36415; 71045; 72100; 76000; 80053; 84145; 85014; 85018; 85025; 86140; 97116; 97162; 97165; 97530; 97535; C1831; C9290; J0171; J0330; J0690; J1100; J1170; J2250; J2405; J2704; J3010